=== PATIENT | male | born 1985 | race Caucasian/White ===

== ENCOUNTER 2018-07-25 01:38 | Inpatient (IN) | payer OTHER ==
[~2018-07-25] VITALS: Ht 175.3 cm; Wt 50.1 kg
[~2018-07-25 01:38] MED LIST: CYCLOBENZAPRINE10 MG PO
[2018-07-25] MEDS ORDERED: VITAMIN C500 M1 PO (02:02)
--- NOTE | 2018-07-25 05:04 | NUR ---
PT ARRIVED WITH ME FROM ED AT 0432. PAIN IS 9, CALLED MD KAY FOR AN EXTRA DOSE OF PAIN MEDICATION WHICH I RECEIVED. V/S ARE WDL.
--- NOTE | 2018-07-25 05:43 | NUR ---
V/S ARE WDL, PAIN IS MONITORED, SOME OUTPUT WITH NG-TUBE. ABD SOUNDS ARE HYPOACTIVE AT BEST. PT HAS NO FLATUS, LAST BM WAS 07/24/18. PT IS NPO AT THIS TIME. LOBES ARE CLEAR, S1 S2 HEARD, NO PERIPHERAL EDEMA NOTED, ALL PERIPHERAL PULSES ARE WDL, PT IS AAO X4. NO NEW CONCERNS NOTED AT THIS TIME. WILL CONTINUE TO MONITOR.
--- NOTE | 2018-07-25 07:14 | NUR ---
REPORT RECEIVED FROM KELSI SMITH. PT REPORTS 10/28 PAIN. PT BEGINS VOMITING DURING REPORT, 50ML GREEN EMESIS NOTED. VITALS TAKEN. MEDICATION GIVEN (SEE MAR). NG TUBE TO CONTINIOUS SUCTION AT 85 PER REPORT. PT RESTING IN BED, GIRLFRIEND AT BEDSIDE. BED RAILS UP. CALL LIGHT WITHIN REACH.
--- NOTE | 2018-07-25 08:14 | NUR ---
MORNING ASSESSMENT DUE. THIS RN TO BEDSIDE. PT CONTINUES TO REPORT NAUSEA, NO EMESIS NOTED. PT REPORTS 5/10 PAIN AND STATES "I'M SO TIRED OF THIS PAIN." PT RESTLESS IN BED. NG TUBE SHOWS 150ML BROWN/GREEN DRAINAGE. ASSESSMENT DONE. PT STATES ABDOMEN IS DISTENDED, TENDER TO TOUCH. BOWEL TONES NOTED. PT UPDATED ON PLAN OF CARE. NG TUBE PLACED ON LOW INTERMITANT SUCTION. NO ADDITONAL REQUESTS OR COMPLAINTS AT THIS TIME. CALL LIGHT WITHIN REACH. BED RAILS UP. GIRLFRIEND AT BEDSIDE.
--- NOTE | 2018-07-25 08:50 | NUR ---
PATIENT SITTTING UP IN BED. FAMILY IN ROOM. PATIENT COMPLAINS ABOUT PAIN. RN NOTIFIED. CALL LIGHT WITHIN REACH. NO OTHER NEEDS AT THIS TIME
--- NOTE | 2018-07-25 09:02 | NUR ---
PT CALL LIGHT ON. PT REPORTS WORSENING PAIN, NOW AT 12/29. MD NOTIFIED. NEW MEDICATION ORDERS PLACED. PHARMACIST NOTIFIED. PT UPDATED. MEDICATION GIVEN (SEE MAR). PT PLACED ON CONTINIOUS PULSE OX. BED RAILS UP. CALL LIGHT WITHIN REACH.
--- NOTE | 2018-07-25 09:05 | NUR ---
PATIENT SITTING UP IN BED. FAMILY IN ROOM. VITAL SIGNS AND I&O DONE. CALL LIGHT WITHIN REACH. NO OTHER NEEDS AT THIS TIME
--- NOTE | 2018-07-25 09:40 | NUR ---
THIS RN TO BEDSIDE FOR ROUNDS WITH MD. PT RATES PAIN AT 4/10 STATING, "IT'S WORSE WHEN I MOVE." PT VERBALIZES UNDERSTANDING OF PLAN OF CARE. CALL LIGHT WITHIN REACH. GIRLFRIEND AT BEDSIDE.
--- NOTE | 2018-07-25 10:30 | NUR ---
NEW ORDERS IN FOR PT. THIS RN TO BEDSIDE. MEDICATIONS GIVEN (SEE MAR). PT REPORTS PAIN NOW AT 7/10. CONTINIOUS PULSE OX READS 97% ON ROOM AIR. PAIN MEDICATION TITRATED UP TO FULL DOSE. SCD'S PLACED. INCENTIVE SPIROMETER EDUCATION DONE WITH PT. PT DEMONSTRATES UNDERSTANDING REACHING 1250ML. CONSENT FOR SURGERY SIGNED. PT ENCORUAGED TO AMBULATE. PT REFUSES AT THIS TIME. PT AGREES TO SHOWER "LATER" BEFORE SURGERY. PT RESTING WITH EYES CLOSED. BED RAILS UP. CALL LIGHT WITHIN REACH.
--- NOTE | 2018-07-25 10:54 | NUR ---
ABX ARRIVED FROM [facility]. STARTED ORDERED (SEE MAR). PT CONTINUES TO REPORT 7/10 PAIN. PT DRIFTS QUICKLY OFF TO SLEEP. PULSE OX READS 96%. BED RAILS UP. CALL LIGHT WITHIN REACH.
--- NOTE | 2018-07-25 11:10 | NUR ---
PATIENT RESTING IN BED. SETS UP BATHROOM FOR SHOWER. CALL LIGHT WITHIN REACH. NO OTHER NEEDS AT THIS TIME
--- NOTE | 2018-07-25 11:44 | CONS ---
[facility] [address] [place], [place] [address] Signed DATE OF CONSULTATION: 07/25/2018 CHIEF COMPLAINT: Diffuse generalized abdominal pain. HISTORY OF PRESENT ILLNESS: Chris is a 32-year-old gentleman, who I know from 2005. He had an appendectomy through a lower midline incision at age 5. He presented to me with a small-bowel obstruction requiring lysis of adhesions and we resected about 6 cm of the small bowel and he had an end-to-end hand-sewn anastomosis. In the meantime, he has been working at the [employer] and lives with his girlfriend, Guevara. She said over the last couple months, he has had a lot of trouble with crampy abdominal pain and has been cutting back on his p.o. intake. He has been losing weight and he is already thin to start with. Finally, the pain was so severe yesterday, she brought him to the emergency room for evaluation. In the emergency room, he is a little distended with some moderate firmness, but no peritonitis. White count was normal. Urine specific gravity was little elevated. CT scan was performed and he has fluid in the stomach throughout the distal jejunum and somewhere into the proximal ileum. He seems to have a transition point in the central abdomen. Small bowel was dilated up to 3.3 cm and fluid-filled with some air fluid levels as well. An NG tube had been placed and he had return of moderately dark bilious fluid. He has been having trouble even with Dilaudid controlling his pain. I was asked to admit him as a general surgeon on-call. PAST MEDICAL HISTORY: Small-bowel obstruction, chronic constipation, and chronic back pain. PAST SURGICAL HISTORY: 1. Open appendectomy through a lower midline incision at age 5. 2. Lysis of adhesions, small-bowel resection with an end-to-end anastomosis at age 20 in 2005, and also circumcision for phimosis around age 10-12. SOCIAL HISTORY: He does not smoke or drink. He lives with his girlfriend, Guevara, at [phone]. He works at the [employer] for [employer]. They have no children. He has four siblings. His mother is Dena Watts at [phone]. They prefer the [facility]. He has no primary care provider. FAMILY HISTORY: Not reviewed today. REVIEW OF SYSTEMS: He had 10 systems reviewed and no new findings other than what we reviewed above. Electronically Signed By: ARNOL CANNON MD 07/25/18 1144 PATIENT NAME: CHRIS WATTS CONSULTATION DATE OF : 87 REPORT #: [id number] PHYSICIAN: ARNOL CANNON MD PCP: NO PRIMARY CARE PHYSICIAN REPORT IS CONFIDENTIAL AND NOT TO BE RELEASED WITHOUT AUTHORIZATION [facility] [address] [place] [id number] Signed ALLERGIES: None. MEDICATIONS: Vitamin C. PHYSICAL EXAMINATION: VITAL SIGNS: His blood pressure 122/81, his heart rate 78, his respiratory rate 16, his temperature is 97.9. He is 97% on room air. He is 5 feet 9 inches and 47 kg. GENERAL: Chris is a 32-year-old gentleman, lying supine in his hospital bed. NG tube is in place with moderately dark but clean NG bilious fluid coming through the NG tube. He is clearly in pain even though he just received some Dilaudid. LUNGS: Clear to auscultation bilaterally. HEART: Regular rate and rhythm. ABDOMEN: Mildly distended. It is moderately firm, dull to percussion without any peritoneal signs or symptoms. LABORATORY DATA: His white blood cell count is 9.6. His neutrophils are 71. His BUN is 8, creatinine 0.8. Urine specific gravity is up at 1.035. Liver function tests are negative. Albumin is 4.1. RADIOGRAPHIC STUDIES: A chest x-ray shows the NG tube in the stomach and unremarkable lungs. The CT scan of the abdomen and pelvis shows the dilated small bowel up to 3.3 cm with air-fluid levels starting in the stomach all the way into somewhere probably the proximal ileum. There seemed to be a transition point somewhere in the central abdomen. It could be his anastomosis or adhesions. ASSESSMENT AND PLAN: Chris is a 32-year-old gentleman, who presents with a small bowel obstruction. He has been admitted, given IV fluids and NG placed. We are going to start his antibiotics. After a long discussion with Chris and his girlfriend, it looks like we are going to take him to the OR later today for a laparotomy, lysis of adhesions and possible small-bowel resection. Chris has been through this before. He is quite familiar with the whole process. He has expressed understanding and would like to proceed. Arnol Cannon MD ALB/MODL Electronically Signed By: ARNOL CANNON MD 07/25/18 1144 PATIENT NAME: CHRIS WATTS CONSULTATION DATE OF : 87 REPORT #: [id number] PHYSICIAN: ARNOL CANNON MD PCP: NO PRIMARY CARE PHYSICIAN REPORT IS CONFIDENTIAL AND NOT TO BE RELEASED WITHOUT AUTHORIZATION [facility] [address] [place] [address] Signed /[id number] Copies: ~ Electronically Signed By: ARNOL CANNON MD 07/25/18 1144 PATIENT NAME: CHRIS WATTS COREEN CONSULTATION DATE OF : 87 REPORT #: [id number] PHYSICIAN: ARNOL CANNON MD PCP: NO PRIMARY CARE PHYSICIAN REPORT IS CONFIDENTIAL AND NOT TO BE RELEASED WITHOUT AUTHORIZATION
--- NOTE | 2018-07-25 11:49 | NUR ---
PT CALL LIGHT ON. PUMP ALARMING, FLAGYL COMPLETE. CEFEPIME CONTINUES TO INFUSION WELL IV FLUIDS. PT HAVING DRY HEAVES, SEE MAR FOR MEDICATION GIVEN. PT REPORTS 6/10 PAIN, PT VERY DROWSY, ANSWERS QUESTIONS WITH CONTINUED AROUSAL. O2 SATURATION 98% ON ROOM AIR. ASSESSEMENT DONE. 550ML NEW BROWN/GREEN DRAINAGED NOTED FROM NG TUBE SINCE THIS MORNING'S ASSESSMENT. PT RESTING WITH EYES CLOSED, RR = 16 BPM. BED RAILS UP. CALL LIGHT WITHIN REACH.
--- NOTE | 2018-07-25 12:53 | NUR ---
PT CALL LIGHT ON. PT VOMITING, PT REPORTS 5/10 PAIN. SEE MAR FOR MEDICAITON GIVEN. PRE-PROCEDURE CHECK LIST COMPLETE. PT AGREES TO SHOWER AT 1400. PULSE OX READS 96% ON ROOM AIR. PT REPORTS NAUSEA IS IMPROVING. NG TUBE TO LOW INTERMITANT SUCTION. CANISTER NEAR FULL. CANISTER EMPTIED. ADDITIONAL 200ML SINCE NOON ASSESSMENT. BED RAILS UP. CALL LIGHT WITHIN REACH.
--- NOTE | 2018-07-25 13:33 | NUR ---
PATIENT RESTING IN BED. VITAL SIGNS AND I&O DONE. PATIENT'S BODY CLEANED WITH SURGICAL WIPES. PATIENT USING A CLEAN GOWN. PATIENT DID NOT VOID DURING THIS PERIOD. RN NOTIFIED. CALL LIGHT WITHIN REACH. NO OTHER NEEDS AT THIS TIME
--- NOTE | 2018-07-25 13:48 | NUR ---
THIS RN TO ROOM TO CHECK ON PT. PT RESTING WITH EYES CLOSED, RR = 16 BPM. GIRL FRIEND AT BEDSIDE. BED RAILS UP. CALL LIGHT WITHIN REACH.
--- NOTE | 2018-07-25 14:30 | NUR ---
OR TEAM HER TO TAKE PT TO SURGERY. PT TRANSFERED TO OR FLUIDS. IV CEFEPIME COMPLETE. PT TRANSFERES SELF TO OR STRETCHER. REPORT GIVEN TO KELSI CMDONALD. NO ADDITIONAL REQUESTS OR COMPLAINTS. PTS FAMILY UPDATED ON WAIT TIME. FAMILY REMAINS IN ROOM AT THIS TIME. HOME COMFORT ADVISOR TO BEDSIDE TO CHANGE SHEETS AND CLEAN ROOM.
--- NOTE | 2018-07-25 14:50 | NUR ---
PATIENT IN SURGERY. JUAN IN ROOM. LINENS CHANGED.NO OTHER NEEDS AT THIS TIME
--- NOTE | 2018-07-25 14:56 | NUR ---
PT FAMILY UPDATED ON PT STATUS AND PLAN OF CARE PER MICROBIOLOGY LAB MANAGER'S.
--- NOTE | 2018-07-25 17:13 | NUR ---
07/25/18 1713 Yessy Mas 1701- PT ARRIVES TO PACU FROM OR ON 6 L VIA MASK WITH NO AIRWAY IN PLACE. NG TUBE IN PLACE SET TO MEDIUM SUCTION. PT OPENS YES AND RESPONDS TO VERBAL STIMULUS. GENERAL ANESTHESIA WITH T.A.P. BLOCK BILATERAL. SATS 100%. OTHER VSS. \ 1711- PT RESPONDS TO VERBAL STIMULUS BUT FALLS BACK ASLEEP EASILY. VSS. SATS 100% ON RA. NG TUBE CONTINUES AT MEDIUM SUCTION
--- NOTE | 2018-07-25 17:50 | NUR ---
PT HAS ARRIVED TO CCU INTO ROOM 127 AT THIS TIME; PT TRANSFERED VIA DRAW SHEET FROM STRETCHER TO BED; PT ARRIVES DROWSY BUT ORIENTED X4, DENIES ANY PAIN, DENIES N/V OR SOB. NG TUBE HOOKED UP TO LOW INTERMITTENT SUCTION AT THIS TIME. VS INITIATED AND ARE WNL. ROOM AIR. PT'S ABDOMINAL DRSG IS C/D/I- SOME SLIGHT BRIGHT RED NOTED AT UPPER PORTION OF DRSG BUT BY NO MEANS SOAKED THROUGH. PT ARRIVES WITH VILLALBA CATHETER IN PLACE THAT WAS PLACED IN OR; CLEAR, LIGHT YELLOW URINE DRAINING INTO TUBING. WILL INITIATED ORDERED ABX SHORTLY ONCE PT SETTLED. ORIENTED PT TO HIS NEW ROOM/ENVIRONMENT AND CALL LIGHT. HE DENIES ANY NEEDS AT THIS TIME. CALL LIGHT WITHIN REACH. WILL CONTINUE TO MONITOR.
--- NOTE | 2018-07-25 18:00 | NUR ---
HEAD TO TOE ASSESSMENT COMPLETED- SEE CHARTED ASSESSMENT. PT REMAINS DROWSY FROM SURGICAL GENERAL ANESTHESIA. STILL DENIES PAIN. PT'S GIRLFRIEND AND OTHER FRIEND AT BEDSIDE. PT DENIES ANY NEEDS. SCD IN PLACE AND ON. CALL LIGHT WITHIN REACH. WILL CONTINUE TO MONITOR.
--- NOTE | 2018-07-25 18:55 | NUR ---
PT CONTINUES TO REST IN BED. CONTINUOUS FLUIDS RUNNING WELL CEFEPIME; FLAGYL HAS COMPLETED. PT'S VILLALBA CONTINUES TO DRAIN CLEAR, LIGHT YELLOW URINE. NG OUTPUT IN SUCTION CANISTER IS A THICK, BROWN COLOR. SEE CHARTED INTAKE. CALL LIGHT WITHIN REACH. SCD IN PLACE. WILL CONTINUE TO MONITOR.
--- NOTE | 2018-07-25 19:43 | NUR ---
ROUNDED ON pt. RESTING ON RIGHT SIDE, EYES CLOSED. RESPIRATIONS REGULAR. NG TO SUCTION. IVF INFUSING. VILLALBA DRAINING WELL. CALL LIGHT WITHIN REACH.
--- NOTE | 2018-07-25 20:09 | NUR ---
CALL LIGHT ON. pt REPORTED "I FEEL GAGGY". RAISED HOB. pt REPORTED FEELING NG TUBE IN BACK OF THROAT, DENIED CHANGE SINCE EARLIER. NG TUBE TO SUCTION WITH BROWN DRAINAGE. pt REPORTED FEELING BETTER AFTER SWALLOWING. ASSESSMENT DONE. RATED BACK PAIN 2/10, DESCRIBED "DISCOMFORT". BT HYPOACTIVE. DRESSING CDI. VILLALBA CARE DONE, STAT LOCK PLACED. VILLALBA DRAINING DILUTE URINE. NO REQUESTS AT THIS TIME. CALL LIGHT WITHIN REACH.
--- NOTE | 2018-07-25 21:07 | NUR ---
CALL LIGHT ON. pt REQUESTED PAIN MEDS FOR BACK PAIN 10/28. PRN MED GIVEN (SEE MAR). pt DENIED PAIN IN ABD. DRESSING CDI. VSS NORMAL. CALL LIGHT WITHIN REACH.
--- NOTE | 2018-07-25 21:37 | NUR ---
DR CANNON CALLED FOR AN UPDATED ON pt. NO NEW ORDERS AT THIS TIME.
--- NOTE | 2018-07-25 22:03 | NUR ---
pt RESTING WITH EYES CLOSED, RESPIRATIONS REGULAR IN RATE AND RHYTHM. VSS. CALL LIGHT WITHIN REACH.
--- NOTE | 2018-07-25 23:06 | NUR ---
ROUNDED ON pt. RESTING WITH EYES CLOSED, RESPIRATIONS REGULAR IN RATE AND RHYTHM. CALL LIGHT WITHIN REACH.
--- NOTE | 2018-07-25 23:50 | NUR ---
CALL LIGHT ON. pt REQUESTED PRN PAIN MED FOR 10/28 PAIN. OFFERED TYLENOL, pt REFUSED AT THIS TIME. DILAUDID GIVEN (SEE MAR). CALL LIGHT WITHIN REACH.
--- NOTE | 2018-07-26 00:10 | NUR ---
ASSESSMENT DONE. VILLALBA BAG EMPTIED. VSS. pt RESTING ON RIGHT SIDE WITH EYES CLOSED. RESPIRATIONS REGULAR. IV ABX INFUSING (SEE MAR). DRESSING CDI. CALL LIGHT WITHIN REACH.
--- NOTE | 2018-07-26 01:00 | NUR ---
ROUNDED ON pt. RESTING WITH EYES CLOSED, RESPIRATIONS REGULAR. CALL LIGHT WITHIN REACH.
--- NOTE | 2018-07-26 01:30 | NUR ---
CALL LIGHT ON. pt REPORTING "SPASMING IN MY STOMACH". REPORTED 8/10 PAIN. KELSI WATSON WILL ADMINISTER PAIN MEDICATION.
--- NOTE | 2018-07-26 02:05 | NUR ---
ROUNDED ON pt. OPENED EYES WHEN THIS RN ENTERED ROOM. pt REPORTED "NO CHANGE" IN PAIN. NEW ICE PACK IN PLACED. PRN PAIN MEDS RECENTLY GIVEN (SEE MAR). pt REPORT BURPING. NG TUBE DRAINING TO SUCTION. WILL CONTINUE TO MONITOR. CALL LIGHT WITHIN REACH.
--- NOTE | 2018-07-26 02:46 | NUR ---
pt REPORTED THAT PAIN "IS NOT MUCH BETTER" REQUESTED "SOMETHING TO KNOCK ME OUT SO I CAN SLEEP" OFFERED TYLENOL SUPPOSITORY, pt REFUSED AT FIRST AND THEN ACCEPTED. SUPPOSITORY ADMINISTERED (SEE MAR). pt RESTING ON RIGHT SIDE. CALL LIGHT WITHIN REACH.
--- NOTE | 2018-07-26 03:47 | NUR ---
ADMINISTER PRN PAIN MEDICATION (SEE MAR). pt RATED PAIN 5/10. ASSESSMENT DONE. NO CHANGES FROM PRIOR ASSESSMENT. CALL LIGHT WITHIN REACH.
--- NOTE | 2018-07-26 04:37 | NUR ---
ROUNDED ON pt. RESTING WITH EYES CLOSED, RESPIRATIONS REGULAR. CALL LIGHT WITHIN REACH.
--- NOTE | 2018-07-26 05:50 | NUR ---
pt RESTED ON AND OFF DURING SHIFT. PRN PAIN MEDICATION GIVEN Q2H FOR BACK PAIN AND ABD LATER IN SHIFT. TYLENOL X1. MIDLINE INCISION WITH GAUZE AND TAPE, CDI. IV IN RIGHT AC SL, LEFT FOREARM CONTINOUS. IV ABX. VILLALBA, VOIDING QS. NPO. NG TUBE TO LIS, BROWN DRAINAGE. BOWEL TONES HYPOACTIVE. HEART MONITOR, SR, HR 60'S TO 100'S. USES CALL LIGHT APPROPRIATELY.
--- NOTE | 2018-07-26 06:45 | NUR ---
REASSESSED PAIN. pt STATED "THAT LAST DOSE DID NOT DO ANYTHING, I HAD A LAB DRAW RIGHT AFTER" RATED PAIN 11/28. ROOM TIDIED. CALL LIGHT WITHIN REACH.
--- NOTE | 2018-07-26 06:55 | OR ---
[facility] [address] [place], [place] [address] Signed DATE OF OPERATION: 07/25/2018 SURGEON: Arnol Cason MD PREOPERATIVE DIAGNOSIS: Small bowel obstruction. POSTOPERATIVE DIAGNOSIS: Small bowel obstruction. PROCEDURES PERFORMED: 1. Lysis of adhesions. 2. Serosal repairs x2 clusters in the distal ileum and mid transverse colon. INPUT AND OUTPUT: In was 1800 mL of crystalloid, out was 25 mL urine over 1 hour and 40 minutes and 1350 mL of liquid particulate stool matter with some bilious fluid and minimal blood loss. FINDINGS: Chris had a portion of his distal ileum and his mid transverse colon adherent to his previous midline incision. The distal ileum then had some adhesions and a kink causing his bowel obstruction. Fortunately, these were filamentous adhesions and easily taken down. His entire colon is full of very hard pellet-like stool. All bowel was viable. INDICATIONS: Chris is a 32-year-old gentleman, who at age [age] had a lower midline incision for an open appendectomy. I have met him at age 20 back in 2005 when he required a lysis of adhesions and about 6 cm of his distal ileum had to be resected and sewn back together into in. 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 He has been living with his girlfriend Guevara. Chris and Guevara are both quite thin, not cachectic. The last 2 months he has been having a lot of trouble with periumbilical and supraumbilical abdominal pain. He recognized that as a bowel obstruction. He has cut his food back and he has been struggling significantly over the last 2 months. Last night he was in significant pain and his girlfriend finally brought him to the emergency room for evaluation. In the emergency room, he had [id number] distention of his abdomen and somewhat firm, but no peritoneal signs or symptoms. His white count was normal at 9.6. Urine specific gravity was a bit elevated. A CT scan was performed and he clearly has a transition point out in the central abdomen of the small intestine and everything proximal to that is dilated with air-fluid levels to about 3.[address] back into the stomach itself. An NG tube Electronically Signed By: ARNOL CASON MD 07/26/18 0655 PATIENT NAME: CHRIS DE LA VEGA OPERATIVE REPORT DATE OF : 87 REPORT #: [id number] PHYSICIAN: ARNOL CASON MD PCP: NO PRIMARY CARE PHYSICIAN REPORT IS CONFIDENTIAL AND NOT TO BE RELEASED WITHOUT AUTHORIZATION [facility] [address] [place], [place] [address] Signed was placed in his stomach in the ER and confirmed with the chest x-ray. He was admitted and given IV fluids. He did receive some additional antibiotics. I have been asked to admit him as a general surgeon on-call. I met with Chris and his girlfriend early this morning. He was critically ill and not feeling well. After talking with Chris and his girlfriend, we all decided it was prudent to go ahead and take him to the operating room today. Normally we would wait a few days and see if he would not improve. I had two previous surgeries which gave us time to give him some additional fluids. Chris is quite familiar with laparotomy and lysis of adhesions having undergone that previously. He is also familiar that we might have to resect the small intestine based on intraabdominal findings. Consequently, he does understand the expected intraop and postop course. He knows there is risk including, but not limited to bleeding, infection, scarring, change in contour of the skin, damage to bowel, incisional hernias and recurrent adhesions and recurrent small bowel obstruction requiring intervention. He and Guevara had expressed understanding and wished to proceed. PROCEDURE NOTE: Chris was taken into our operating room and placed in the supine position. He was given preoperative antibiotics and subcutaneous heparin. SCDs were utilized. Zamora catheter was inserted with out difficulty with return of clear yellow urine. He was then prepped and draped in the usual sterile fashion. We utilized his previous midline incision and we had to extend that slightly cephalad toward the xiphoid process in order to enter the abdomen. Otherwise, the transverse colon in length of small intestine was quite adherent to his midline incision at the umbilicus and just above the umbilicus. It took just a few minutes to lyse the adhesions and released that transverse colon and small bowel. It was quite evident that the adhesions of the small bowel to the anterior abdominal wall that caused the kink in his small intestine. I took those adhesions down sharply and that relieved the bowel quite nicely. The distal portion of the ileum was decompressed. We found our previous anastomosis and it was well healed and widely patent. He also had a few adhesions along the anterior liver edge to the chest wall and we took those down quite easily with our cautery. The serosal injury in the mid transverse colon was closed longitudinally with a running #3-0 Vicryl suture. We found that his entire colon from the cecum all the way around to the rectum was full of very hard pellet-like stool. He did have some serosal injury right around the adhesions on the distal small bowel to the anterior abdominal wall. Those were closed transversely and longitudinally with interrupted 3-0 Vicryl sutures. The lumen remained widely patent. We then had to run the small bowel back into the stomach between the index finger and into the 2nd finger. Brown liquid particulate stool matter was evacuated along with some bilious fluid. In fact, 1350 mL were evacuated. After this, the abdomen was irrigated and suctioned out until clear. Chris is quite thin at 5 foot 9 inches tall at 47 kg. Consequently, he has little of any fat in his mesentery and we could see the blood vessels quite well along with multiple tiny reactive lymph nodes. Also, he has little or no omentum. The gastrocolic ligament was also quite thin. We Electronically Signed By: ARNOL CASON MD 07/26/18 0655 PATIENT NAME: CHRIS DE LA VEGA OPERATIVE REPORT DATE OF : 87 REPORT #: [id number] PHYSICIAN: ARNOL CASON MD PCP: NO PRIMARY CARE PHYSICIAN REPORT IS CONFIDENTIAL AND NOT TO BE RELEASED WITHOUT AUTHORIZATION [facility] [address] [place], [place] [address] Signed had placed the small bowel back in the abdomen and we closed his midline fascia with interrupted [id number] #1 PDS sutures. We then brought the skin together with shen. At the end of the procedure a TAP abdominal wall block was provided by our anesthesia provider with ultrasound guidance. We left our Zamora catheter in place. He was awakened from his anesthesia, extubated in the OR, and taken to recovery room in stable condition. Arnol Cason MD ALB/NICKL /[id number] cc: Arnol Cason MD Copies: ARNOL CASON MD ~ Electronically Signed By: ARNOL CASON MD 07/26/18 0655 PATIENT NAME: CHRIS DE LA VEGA OPERATIVE REPORT DATE OF : 87 REPORT #: [id number] PHYSICIAN: ARNOL CASON MD PCP: NO PRIMARY CARE PHYSICIAN REPORT IS CONFIDENTIAL AND NOT TO BE RELEASED WITHOUT AUTHORIZATION
--- NOTE | 2018-07-26 07:01 | NUR ---
SPOKE WITH MD REGARDING pt's PAIN. MD WILL ENTER ORDERS.
--- NOTE | 2018-07-26 07:55 | NUR ---
THIS RN ENTERED ROOM TO FIND PT VISIBLY UNCOMFORTABLE, GUARDING HIS STOMACH. PT RATES HIS ABDOMINAL PAIN A 8 OUT OF 10 WITH A PAIN GOAL OF 3. HE IS A/O X4 BUT ANXIOUS, RESTLESS YET SOMEWHAT WITHDRAWN. ROOM AIR. LUNGS ARE CLEAR BUT DIMINISHED- PT TAKING SHALLOW BREATHES DUE TO HIS PAIN- EDUCATION GIVEN ON IMPORTANCE OF HIM COUGHING AND DEEP BREATHING- I UNDERSTAND WITH HIS PAIN THIS IS HARD- WILL ENCOURAGE MORE ONCE PAIN IS BETTER. BOWEL TONES ARE RARE AND HYPOACTIVE- DR. CANNON HAS ARRIVED AT THE BEDSIDE AT THIS TIME AND HAS REMOVED THE DRSG ON HIS ABDOMEN. INCISION IS NOW OPEN TO AIR- CHELITA IN TACT- WOUND IS C/D/I WITHOUT ANY VISIBLE SIGNS OF INFECTION OR ISSUES. SR ON CONTINUOUS TELE. PULSE OX IN PLACE FOR NARCOTIC MEDS GIVEN. VILLALBA IN PLACE DRAINING, DILUTE, CLEAR YELLOW URINE- ADEQUATE OUTPUT. BOTH PIV FLUSH WELL WITH GOOD BLOOD RETURN. CEFEPIME RUNNING WITH CONTINUOUS FLUIDS. PT'S SKIN PALE EXCEPT FOR SOME REDNESS ON COCCYX AND GROIN. PT HASN'T BEEN OUT OF BED YET HE IS IN TOO MUCH PAIN AND IT HURTS HIM TO MOVE. DR. CANNON HAS SPOKEN TO PT ABOUT HIS PLAN TO ORDER TORADOL AND PULP TESTER TO ASSIST WITH PT'S DISCOMFORT. PT DENIES ANY N/V OR SOB. HIS NGT IS TO LOW INTERMIT SUCTION WITH SMALL AMOUNT OF DARK GREEN DRAINAGE IN THE TUBING. HE DENIES ANY FURTHER NEEDS OTHER THAN ASSISTANCE WITH PAIN CONTROL. PRN DILAUDID GIVEN. CALL LIGHT WITHIN REACH. WILL CONTINUE TO MONITOR.
--- NOTE | 2018-07-26 09:00 | NUR ---
PT STILL RESTING ON HIS SIDE GUARDING HIS STOMACH- FRESH ICE PACK PROVIDED WELL CUP OF ICE CHIPS AND MOUTH SWABS. HE RATES HIS PAIN A 4 OUT OF 10- MUCH BETTER COMPARED TO THIS AM BUT NOT QUITE TO HIS GOAL. TORADOL GIVEN. UPDATED PT ON HOW WE ARE AWAITING WAIT STAFF MIXTURE FROM PHARMACY. DENIES ANY OTHER NEEDS. CALL LIGHT WITHIN REACH. WILL CONTINUE TO MONITOR.
--- NOTE | 2018-07-26 09:53 | NUR ---
PT RESTING IN BED STILL- VILLALBA EMPTIED. PT UPDATED ON PLAN OF TRANSFER TO M/S ROOM 115 WELL STILL AWAITING SOME MEDS FROM PHARMACY. PT APPEARS MUCH MORE RESTFUL COMPARED TO THIS MORNING AT 0800 BUT HE IS STATING HIS PAIN IS STILL NOT WHERE HE'D LIKE IT. CALL LIGHT WITHIN REACH. WILL CONTINUE TO MONITOR.
--- NOTE | 2018-07-26 10:39 | NUR ---
DILAUDID RABBLE FURNACE TENDER INITIATED AT THIS TIME WITH 2 RN VERIFICATION.
--- NOTE | 2018-07-26 10:43 | NUR ---
REPORT GIVEN TO RECEIVING KELSI HERNÁNDEZ; PT TAKEN IN BED WITH ALL BELONGINGS TO ROOM 115 ON M/S UNIT AT THIS TIME- PT TRANSPORTS WITH HIS BULB GRADER RUNNING WELL HIS CONTINUOUD FLUIDS, CALCIUM GLUCONATE AND MAG SULFATE. TRANSFER COMPLETE.
--- NOTE | 2018-07-26 10:47 | NUR ---
Report received from KELSI Rojas. Pt arrives to room 115 by hospital bed. Pt's eyes closed and respirations even and unlabored. Pt is alert to voice. Pt oriented to room and call light. Pt was educated on use of REHAB NURSE pump and CPOX applied as well as SCD's. REHAB NURSE remote in reach. Pt rates pain at 4/10 and states it is tolerable. Moistened toothettes provided for comfort per pt request. Assessment completed and vs's stable on room air. NG tube hooked up to low intermittant suction and producing small amounts of dark green gastric fluids. pt states he is comfortable and denies further needs or concerns. White board updated.
--- NOTE | 2018-07-26 11:39 | NUR ---
PT OFF FLOOR TO IMAGING FOR CXR.
--- NOTE | 2018-07-26 13:16 | NUR ---
Pt resting supine in bed, eyes closed and respirations even and unlabored. IV abx infusing. Room air sat is 98%. Call light and PIN TICKET MACHINE OPERATOR pump in reach. Pt appears to be sleeping comfortably.
--- NOTE | 2018-07-26 16:47 | NUR ---
PT RESTING SUPINE IN BED, EYES CLOSED AND RESPIRATIONS 12 SATTING 97% ON ROOM AIR. PT STATES PAIN IS CURRENTLY 04/30. SCHEDULED TORADOL ADMINSTERED -SEE EMAR. I ENCOURAGED PT TO AMBULATE BUT PT DECLINES AT THIS TIME. PT AGREES TO USE CALL LIGHT WHEN HE FEELS READY TO TRANSFER TO CHAIR OR TO GO FOR A WALK. CALL LIGHT AND MOISTENED TOOTHETTES IN REACH. PT CONTINUES TO DENY PASSING GAS BUT STATES HE HAS BEEN BELCHING INTERMITTANTLY.
--- NOTE | 2018-07-26 18:00 | NUR ---
Pt assisted up to chair with 1 person assist. Warm blanket provided, call light in reach. chapstick also provided. Pt states pain is tolerable and denies nausea. Pt states "I actually passed some gas".
--- NOTE | 2018-07-26 18:51 | NUR ---
Patient's medications reconciled. Patient takes Vit C and Kratom 3g BID to TID for pain. Kratom leaves contain compounds that can have psychotropic effects similar to both opioids and stimulants.
--- NOTE | 2018-07-26 19:47 | NUR ---
REPORT RECEIVED, PT RESTING IN BEDSIDE CHAIR, PT AOX4, QUIET, NG TUBE DRAINING TO LIWS, ON CPOX, O2: 97%, HR: 81, ON RA, SLEEVE BASTER PUMP INFUSING PER EMAR, VILLALBA CATH DRAINING WNL, PT DENIES ANY NEEDS AT THIS TIME, FAMILY AT BEDSIDE, UPDATE GIVEN TO FAMILY BY EDGAR DOLAN, QUESTIONS ANSWERED, CALL LIGHT WITHIN REACH, SLEEVE BASTER BUTTON WITH PT, FALL PRECAUTIONS IN PLACE.
--- NOTE | 2018-07-26 21:08 | NUR ---
VITALS DONE NAD CHARTED. PT NEEDS NOTHING AT THIS TIME. BEDSIDE TABLE AND CALL LIGHT IN REACH.
--- NOTE | 2018-07-26 21:29 | NUR ---
ROUNDED CHARGE. PATIENT DENIES ANY COMMENTS, QUESTIONS OR CONCERNS. NO NEEDS NOTED. CALL LIGHT IN REACH.
--- NOTE | 2018-07-26 21:45 | NUR ---
EVENING MEDS ADMINISTERED, PT MOVED FROM BEDSIDE CHAIR TO BED, TOLERATED WELL, MILK CONDENSER INFUSING PER EMAR WNL, IV FLUIDS INFUSING PER EMAR WNL, SCD'S ON, VILLALBA CATH DRAINING WNL, NO REQUESTS AT THIS TIME, CALL LIGHT WITHIN REACH. ASSESSMENT COMPLETE, PT'S INCISION APPEARS C/D/I, CHELITA INTACT, NO SIGNS OF DRAINAGE, PT AOX4, EASILY AROUSABLE WHEN PT IS RESTING.
--- NOTE | 2018-07-27 00:34 | NUR ---
NEW LINEWORKER SYRINGE PLACED WITH ALGEBRAISTKELSI CONCEPCION, 2 RN VERIFICATION, PT ALSO GIVEN SCHEDULED TORADOL, NO FURTHER REQUESTS AT THIS TIME, CALL LIGHT WITHIN REACH. FALL PRECAUTIONS IN PLACE. VILLALBA CATH DRAINING WNL, SCD'S ON,
--- NOTE | 2018-07-27 03:02 | NUR ---
PT RESTING IN BED, EYES CLOSED, BREATHS EVEN, UNLABORED, NO REQUESTS AT THIS TIME, CALL LIGHT WITHIN REACH. FALL PRECAUTIONS IN PLACE.
--- NOTE | 2018-07-27 04:26 | NUR ---
PT RESTING IN BED, STATES THAT HIS PAIN "IS GOOD" AT THIS TIME, NO REQUESTS AT THIS TIME, CALL LIGHT WITHIN REACH, NG TUBE DRAINING TO LIWS WNL, VILLALBA CATH DRAINING WNL, IV FLUIDS INFUSING PER EMAR WNL, RADAR SYSTEMS ENGINEER INFUSING PER EMAR WNL, PT AROUSABLE TO VOICE, RR EVEN, CPOX ON, O2 SAT > 95%, CALL LIGHT WITHIN REACH.
--- NOTE | 2018-07-27 05:45 | NUR ---
PT AOX4 THIS SHIFT, APPROPRIATE, PAIN HAS BEEN WELL CONTROLLED WITH ALLIANCE MANAGER THIS SHIFT, PT HAS BEEN ABLE TO SLEEP ON AND OFF, NG TUBE TO LIWS, IV FLUIDS/ABX INFUSED PER EMAR WNL, VILLALBA CATH DRAINING WNL, UO QS, ON CPOX, ON RA, VSS, O2 SAT > 95%, ABD INCISION IS OPEN TO AIR, NO SIGNS OF DRAINAGE, ALLIANCE MANAGER PUMP INFUSING PER EMAR WNL, SCD'S ON, PT NPO, USES CALL LIGHT APPROPRIATELY.
--- NOTE | 2018-07-27 08:03 | NUR ---
PT RESTING QUIETLY IN BED RR 16 BPM. NO DISTRESS NOTED
--- NOTE | 2018-07-27 08:12 | NUR ---
DISCUSSED WITH PT PLAN TO SHOWER AND WALK TODAY. VILLALBA CATHETER REMOVED
--- NOTE | 2018-07-27 08:30 | NUR ---
EDUCATION ON EXTERNAL RELATIONS DIRECTOR GIVEN TO PT VERBAL AND TEACH BACK, EXTERNAL RELATIONS DIRECTOR TO BE USED NEEDED. PT SLEEPING WHEN RN INTO ROOM PT ALERT AND PUSHED EXTERNAL RELATIONS DIRECTOR, RESTED BACK IN BED DROWSY APPEARED TO BE SLEEPING, ALERT TO VOICE PT LEANED OVER PUSHED EXTERNAL RELATIONS DIRECTOR BUTTON. PT VERY DROWSY, DISCUSSED WITH PAT PLAN OF CARE FOR THE DAY TO SHOWER AND AMBULATE. PT VERBALIZED UNDERSTANDING.
--- NOTE | 2018-07-27 09:18 | NUR ---
REATTATCHED PT TO IVF, AB AND CANDY POLISHER. REMOVED BASAL RATE AND LEFT PATIENT CONTROLLED DOSE INTACT AT 0.3, 10 MIN LOCKOUT. PER RN ELIUD REQUEST. PT STATES HE FEELS BETTER AFTER SHOWER.
--- NOTE | 2018-07-27 09:49 | NUR ---
CONTINUOUS INFUSION OF 0.3MG/HR STOPPED ON CLINICAL SCIENCE LIAISON DUE TO PT DROWSY. PT HAVING DIFFICULTY PARTICIPATING WITH CARE PLAN ACTIVITY. WILL CALL .
--- NOTE | 2018-07-27 10:00 | NUR ---
CALLED TO DISCUSS DIRECT SUPPORT STAFF MEMBER USE BY PT AND PT DROWSY PRESENTATION. GAVE ORDER TO STOP CONTINUOUS RATE OF 0.3MG/HR
--- NOTE | 2018-07-27 11:05 | NUR ---
PT RESTING IN BED EYES CLOSED NO DISTRESS NOTED. PT RR 14 BPM NO DISTRESS NOTED, OXYGEN SATURATION 96%. PT APPEARS TO BE SLEEPING AT THIS TIME.
--- NOTE | 2018-07-27 13:18 | NUR ---
PT EXPECTS TO RETURN HOME UPON DC, HE STATES HE WILL BE RETURNING HOME WHEN HE FINALLY GETS OUT OF HERE.
--- NOTE | 2018-07-27 13:19 | NUR ---
PT UP AMBUALTING IN HALLS AT THIS TIME WITH YOHAN RN, PT IS TOLERATING ACTIVITY WELL. PT HAS BEEN ALERT TO GUESTS IN ROOM AND STAFF ENTERING ROOM, IMPROVEMENT FROM STAFF NEEDING TO SPEAK HIS NAME TO WAKE HIM.
--- NOTE | 2018-07-27 14:13 | NUR ---
PT REPORTS PAIN 5/10 NEW SYRINGE FOR BUS COMPANY MANAGER PLACED. PT ALERT VISITNG WITH GUEST AT BEDSIDE.
--- NOTE | 2018-07-27 17:43 | NUR ---
PT HAS BEEN UP TO SHOWER THIS AM AND HAS AMBULATED IN HALLS EVERY 2-3 HOURS AFTER THAT. HE IS MORE ALERT SINCE THE DISCONTINUED IS BASAL RATE, INCISION INTACT WELL PROXIMATED CHELITA INTACT. PT HAS BEEN COOPERATIVE WITH CARE PLAN TODAY. VILLALBA OUT THIS AM VOIDING QUANTITIY SUFFICIENT, FLATUS POSITIVE, ACTIVE BOWEL TONES. NGT HAS DRAINED 200ML OVER THIS SHIFT GREEN/BROWN BILE
--- NOTE | 2018-07-27 18:26 | NUR ---
CHIQUITA WENT FOR A WALK AROUND MED/SURG. HE DID 2 LONG LAPS.
--- NOTE | 2018-07-27 19:26 | NUR ---
REPORT RECEIVED, PT RESTING IN BED VISITING WITH FAMILY, ON CPOX, O2 SAT 96%, HR 70'S, PT STATES PAIN IS CURRENTLY AT A 2 AND STATES HE IS COMFORTABLE AT THIS TIME, NG TUBE DRAINING TO LIWS, IV FLUIDS INFUSING PER EMAR WNL, NO REQUESTS AT THIS TIME, CALL LIGHT WITHIN REACH.
--- NOTE | 2018-07-27 21:00 | NUR ---
EVENING MEDS ADMINISTERED, ASSESSMENT COMPLETE, PT'S NG TUBE DRAINING TO LIWS WNL, IV FLUIDS INFUSING PER EMAR WNL, ULTRASONOGRAPHER AT PT'S BEDSIDE, PT STATES PAIN IS 2/10, DENIES NEED FOR FURTHER PAIN MANAGEMENT, PT'S ABDOMEN INCISION C/D/I, NO DRAINAGE, BT ACTIVE, PT DENIES BM THIS DAY ALTHOUGH FLATUS HAS CONTINUED, PT DENIES ANY NEEDS AT THIS TIME, AOX4, CALL LIGHT WITHIN REACH. FALL PRECAUTIONS IN PLACE. ON RA, VSS.
--- NOTE | 2018-07-27 23:00 | NUR ---
PT RESTING IN BED, EYES CLOSED, BREATHS EVEN, NO REQUESTS AT THIS TIME, IV FLUIDS INFUSING PER EMAR WNL, CALL LIGHT WITHIN REACH.
--- NOTE | 2018-07-28 00:32 | NUR ---
PT RESTING IN BED, EYES CLOSED, BREATHS EVEN, UNLABORED, NO REQUESTS AT THIS TIME, CALL LIGHT WITHIN REACH, FALL PRECAUTIONS IN PLACE. IV FLUIDS INFUSING PER EMAR WNL.
--- NOTE | 2018-07-28 02:00 | NUR ---
PT RESTING IN BED, NO REQUESTS AT THIS TIME, CALL LIGHT WITHIN REACH.
--- NOTE | 2018-07-28 03:51 | NUR ---
PT RESTING IN BED, EYES CLOSED, BREATHS EVEN, ON CPOX, NG TUBE TO LIWS, NO C/O SOB/CP, ON RA, SCD'S ON, SHOPPING INSPECTOR AT BEDSIDE, IV FLUIDS INFUSING PER EMAR WNL, NO REQUESTS AT THIS TIME, CALL LIGHT WITHIN REACH. FALL PRECAUTIONS IN PLACE.
--- NOTE | 2018-07-28 04:04 | NUR ---
IV ABX COMPLETE, IV IN PT'S LFA SL, FLUSHES WELL, PT DENIES ANY NEEDS AT THIS TIME, VOIDED 275 MLS OF DARK YELLOW URINE, DENIES ANY NEEDS AT THIS TIME, PT DENIES SIGNIFICANT PAIN STATING THAT HE JUST USED HIS WOMENS HEALTH NURSE PRACTITIONER WHILE AWAKE, O2 SAT > 95%, NG TO LIWS, CALL LIGHT WITHIN REACH.
--- NOTE | 2018-07-28 04:37 | NUR ---
PT AOX4 THIS SHIFT, LESS DROWSY THAN PREVIOUS, PAIN CONTROL WAS WELL MANAGED WITH PULVERIZER, PT ON RA, VSS, CPOX ON, O2 SAT > 95% THIS SHIFT, NG TUBE TO LIWS, PULVERIZER AT BEDSIDE, SCD'S ON, IV FLUIDS/ABX INFUSED PER EMAR WNL, PT ABLE TO REST MORE THIS SHIFT, BT ACTIVE, FLATUS NOTED, INCISION C/D/I. NO C/O NAUSEA. USES CALL LIGHT APPROPRIATELY.
--- NOTE | 2018-07-28 06:10 | NUR ---
PT RESTING IN BED, VSS, NO REQUESTS AT THIS TIME, NG TO LIWS, 2OO MLS OF BILIOUS GREEN FLUID REMOVED THIS SHIFT, IV FLUIDS/ABX INFUSING PER EMAR WNL, HAIR MACHINE OPERATOR AT BEDSIDE, BUTTON WITHIN REACH. PT DENIES SIGNIFICANT PAIN, SCD'S ON, CALL LIGHT WITHIN REACH.
--- NOTE | 2018-07-28 08:51 | NUR ---
PT IN BED, PAIN TOLERABLE, BUTTON IN REACH. LUNGS CLEAR. INCISION CDI. MEDS ADMINISTERED WITH STUDENT KELSI KAHN. AB INFUSING IN LFA.
--- NOTE | 2018-07-28 09:57 | NUR ---
PATIENT RESTING IN BED. VITAL SIGNS AND I&O DONE. PATIENT REFUSED TO TAKE A SHOWER OR BEDBATH TODAY. CALL LIGHT WITHIN REACH. NO OTHER NEEDS AT THIS TIME
--- NOTE | 2018-07-28 11:23 | NUR ---
PT WALKED IN JOVEL WITH RN STUDENT FEMI. PT TOLERATED WELL AND WAS ABLE TO DO THREE LAPS. STATES HE WILL WALK APPROX Q2 ALL DAY HE IS ANXIOUS TO GET BETTER.
--- NOTE | 2018-07-28 12:23 | NUR ---
PATIENT WALKS IN THE JOVEL TWO LAPS. ONE PERSON ASSISTING. PATIENT BACKS TO BED. CALL LIGHT WITHIN REACH. NO OTHER NEEDS AT THIS TIME
--- NOTE | 2018-07-28 12:30 | NUR ---
RE-POSITIONED NGT AT THIS TIME, AND RE-TAPED
--- NOTE | 2018-07-28 12:47 | NUR ---
PT IN BED AWAKE TALKING TO MOTHER IN ROOM. HUNG BOTH AB. IV WNL. NG AT LIWS. SUCTION MAKING NEW SOUND BUT APPEARS TO BE WORKING WNL.
--- NOTE | 2018-07-28 12:47 | NUR ---
talked with about pt confusion and agitation. new orders placed
--- NOTE | 2018-07-28 13:39 | NUR ---
KELSI KLINE IN GIVING MEDS, PT SITTING IN DARKENED RM WITH TV OFF. PT ON NG TUBE, PLEASANT, MENTIONED THAT HIS FAMILY MAIL LIST LIBRARIAN HAD JUST BEEN BY FOR A VISIT BUT HE COULDN'T REMEMBER HIS NAME. GAVE ENCOURAGEMENT, NOTICED FLUID FLOWING FROM NG TUBE.PT SEEMED TO BE COPING APPROPRIATELY WITH TREATMENT, SAID HE HAS HAD THIS BEFORE. PT HAS JUST RETURNED FROM P.T. SESSION, READY TO REST. EXTENDED A BLESSING, WILL FOLLOW NEEDED
--- NOTE | 2018-07-28 14:00 | NUR ---
PATIENT RESTING IN BED. VITAL SIGNS AND I&O DONE. CALL LIGHT WITHIN REACH. NO OTHER NEEDS AT THIS TIME
--- NOTE | 2018-07-28 14:28 | NUR ---
PT WALKED IN JOVEL, 3 LAPS WITH THIS RN. TOLERATED WELL AND AT A BRISK PACE. REHOOKED TO NG SUCTION AND SCDS. DENIES CONCERNS ATT.
--- NOTE | 2018-07-28 18:23 | NUR ---
PATIENT RESTING IN BED. VITAL SIGNS AND I&O DONE. HANDS CLEANED. CALL LIGHT WITHIN REACH. NO OTHER NEEDS AT THIS TIME
--- NOTE | 2018-07-28 18:40 | NUR ---
PATIENT RESTING IN BED. RN IN ROOM. VITAL SIGNS AND I&O DONE. HANDS CLEANED. CALL LIGHT WITHIN REACH. NO OTHE NEEDS AT THIS TIME
--- NOTE | 2018-07-28 18:51 | NUR ---
PT AMBULATED IN JOVEL X3 SO FAR TODAY. DOES ATLEAST THREE LAPS EACH TIME. USING SUPERVISOR PASTE MIXING APPROP. BOWEL TONES HYPOACTIVE. PASSING GAS. NO STOOL.
--- NOTE | 2018-07-28 19:08 | NUR ---
RECIEVED BEDSIDE REPORT FROM LISA DOLAN. PATIENT LAYING AWAKE WITH A VISITOR AT BEDSIDE. NG TUBE FUNCTIONING WNL, SUCTION AT LWIS PER ORDER. PARTICLEBOARD FACTORY WORKER BUTTON WITHIN REACH OF PATIENT. SCDS IN PLACE. WHITE BOARD UPDATED. NO MORE NEEDS AT THIS TIME.
--- NOTE | 2018-07-28 20:50 | NUR ---
ASSESSMENT COMPLETE, REFER TO ASSESSMENT. PATIENT REPORTS "4/10" PAIN IN ABD AND REPORTS ABD SPASMS, SANITARY PLUMBER BUTTON WITHIN REACH OF PATIENT, SANITARY PLUMBER SYRINGE REPLACED PER JUN ORDER WITH DOUBLE VERIFICATION BY CHARGE NURSE NURY. INCISION ON ABD IS CDI, NO NEW DRAINAGE NOTED. ACTIVE BOWEL TONES PRESENT. IV FLUIDS INFUSING PER JUN ORDER. PATIENT DENIES NAUSEA. PATIENT DENIES SOB OR DIFFICULTY BREATHING OR CHEST PAIN, RR: 16, PATIENT AWAKE AND ALERT. CPOX,WNL. NG TUBE FUNCTIONING WNL, LWIS PER ORDER, BROWN/GREEN DRAINAGE IN NG TUBE. EDUCATED PATIENT ON IMPORTANCE OF INCENTIVE SPIROMETER, PATIENT EXPRESSED UNDERSTANDING. CALL LIGHT WITHIN REACH. NO MORE NEEDS AT THIS TIME.
--- NOTE | 2018-07-28 22:34 | NUR ---
V/S AND I&O DONE AND CHARTED. DENIES ANY NEEDS AT THIS TIME.
--- NOTE | 2018-07-28 22:35 | NUR ---
ROUNDED ON PATIENT RESTING IN BED WITH EYES CLOSED, RESPIRATORY RATE IS EVEN AND UNLABORED, RR: 18. CPOX, WNL. PATIENT AWAKE AND ALERT. PATIENT REPORTS PAIN IN ABD A "1/10". CALL LIGHT WITHIN REACH. NO MORE NEEDS AT THIS TIME.
--- NOTE | 2018-07-29 00:30 | NUR ---
ROUNDED ON PATIENT LAYING IN BED WITH EYES CLOSED, PATIENT EASILY AWOKE TO THIS RN WALKING IN ROOM. MEDICATIONS ADMINISTERED PER JUN ORDER. PATIENT REPORTS PAIN IN ABD IS "5/10", PATIENT DENIES WANTING PRN PAIN MEDICATION AT THIS TIME. PILLOW PROVIDED TO PATIENT PER PATIENT REQUEST. CALL LIGHT WITHIN REACH. NO MORE NEEDS AT THIS TIME.
--- NOTE | 2018-07-29 01:30 | NUR ---
ROUNDED ON PATIENT RESTING IN BED WITH EYES CLOSED, RESPIRATORY RATE IS 16. CPOX, WNL. NO SIGNS OF TENSING OR GRIMACING. NO SIGNS OF DISTRESS. CALL LIGHT WITHIN REACH.
--- NOTE | 2018-07-29 03:50 | NUR ---
ROUNDED ON PATIENT RESTING IN BED WITH EYES CLOSED, RESPIRATORY RATE IS EVEN AND UNLABORED. RR: 16. CPOX, WNL. NO SIGNS OF TENSING OR GRIMACING. CALL LIGHT WITHIN REACH. NO MORE NEEDS AT THIS TIME.
--- NOTE | 2018-07-29 04:15 | NUR ---
ASSESSMENT COMPLETE, REFER TO ASSESSMENT. PATIENT REPORTS "4/10" PAIN IN ABD, DENIES WANTING PRN PAIN MEDICATION AT THIS TIME, ASSOCIATE MERCHANDISE PLANNER BUTTON IN PATIENT'S HAND. PATIENT REPORTS EXPERIENCING "A LITTLE BIT" OF NAUSEA, DENIES WANTING PRN NAUSEA MEDICATION. PATIENT DENIES WANTING TO BE REPOSITIONED IN BED, EDUCATION PROVIDED TO PATIENT, PATIENT STILL DECLINED REPOSITIONING AT THIS TIME. ACTIVE BOWEL TONES, PATIENT REPORTS PASSING FLATUS. NG TUBE FUNCTIONING WNL, LIGHT GREEN DRAINAGE NOTED FROM NG, LWIS PER ORDER. RR: 16, CPOX IS WNL, NO SIGNS OF DISTRESS. ALERT AND ORIENTED. CALL LIGHT WITHIN REACH. NO MORE NEEDS AT THIS TIME.
--- NOTE | 2018-07-29 05:13 | NUR ---
ROUNDED ON PATIENT RESTING IN BED WITH EYES CLOSED, RESPIRATORY RATE IS EVEN AND UNLABORED. PATIENT AWOKE WHEN SPOKEN TO. NEW BAG OF IV FLUIDS INFUSING PER JUN ORDER. CALL LIGHT WITHIN REACH. NO MORE NEEDS AT THIS TIME.
--- NOTE | 2018-07-29 05:40 | NUR ---
ROUNDED ON PATIENT RESTING IN BED WITH EYES CLOSED, RESPIRATORY RATE IS EVEN AND UNLABORED. IV ABX ADMINISTERED PER MAR ORDER. CPOX, WNL. CALL LIGHT WITHIN REACH.
--- NOTE | 2018-07-29 06:30 | NUR ---
ROUNDED ON PATIENT RESTING AWAKE IN BED. NEW CONTINUITY READER SYRINGE PLACED PER JUN ORDER, DOUBLE VERIFIED WITH TIEN DOLAN, PUMP CLEARED. PATIENT REPORTS PAIN A "4/10", CONTINUITY READER BUTTON WITHIN REACH OF PATIENT. SCHEDULED MEDICATION ADMINISTERED PER JUN ORDER. CALL LIGHT WITHIN REACH. NO MORE NEEDS AT THIS.
--- NOTE | 2018-07-29 10:41 | NUR ---
PATIENT SALINE LOCKED FOR A SHOWER AT THIS TIME
--- NOTE | 2018-07-29 14:24 | NUR ---
PATIENT STATES PAIN IS TOLERABLE, MOSTLY AT A 3/10 BUT SPIKES UP TO A 5/10. HE HAS BEEN USING THE ROLL OVER LOADER PUMP APPROPRIATLY. HE HAS BEEN PASSING GAS BUT BOWEL TONES ARE HYPOACTIVE. FAMILY IS HERE TO VISIT.
--- NOTE | 2018-07-29 14:33 | NUR ---
PT IN BED, MOTHER IN RM VISITING. HE SHOOK MY HAND AND THANKED ME FOR COMING IN. HE FELT HE WAS HAVING A BETTER DAY AND NG BOWL WAS FULL. INFORMED KELSI KLINE OF [facility] STATUS. EXTENDED A BLESSING, WILL CONTINUE TO FOLLOW
--- NOTE | 2018-07-29 17:04 | NUR ---
PATIENT GIVEN SCHEDULED PAIN MEDICATION AT THIS TIME, PATIENT STATES THAT PAIN IS CURRENTLY AT A 2/10 BUT SHOOTS UP TO A 6/10.
--- NOTE | 2018-07-29 18:45 | NUR ---
PATIENT HAS BEEN PASSING GAS TODAY BUT BOWEL TONES REMAIN HYPOACTIVE. NG TUBE DRAINAGE BILE IS STILL A DARK BROWN AND ABDOMEN IS SOFT NON DESTENDED. INSICION MIDLINE ABDOMEN IS INTACT WITH CHELITA NO DRAINAGE NOTED. HE HAS AMBULATED IN THE HALLWAY TWICE AND TOOK A SHOWER.
--- NOTE | 2018-07-29 19:10 | NUR ---
SHIFT REPORT RECEIVED FROM ISRAELMNTANI SURESH AT BEDSIDE. PT AWAKE AND RESTING IN BED, RR WNL, CPOX IN PLACE. PT ON RA, O2 SAT AND HR WNL. NG TUBE FUNCTIONING WNL, SET TO LWIS. DIRECTOR OF DIGITAL PLATFORMS BUTTON WITHIN REACH. IV FLUIDS INFUSING PER MD ORDERS, SITE WNL. INCISION SITE OPEN TO AIR, CHELITA NOTED, WELL APPROXIMATED. PT DENIES NEEDS AT THIS TIME. CALL LIGHT IN REACH.
--- NOTE | 2018-07-29 20:30 | NUR ---
ASSESSMENT COMPLETE, SCHEDULED MEDICATIONS GIVEN (SEE EMAR). PT REPORTS / "TOLERABLE PAIN". PT STATES, "I'M FINE. I DON'T NEED ANYTHING ELSE". PT A/OX4. VSS. IV FLUIDS AND SCHEDULED IV ABX INFUSING, SITE WNL. BLOOD RETURN NOTED. INCISION SITE WELL APPROXIMATED, CHELITA NOTED. SITE OPEN TO AIR. NG TUBE TO LIWS, OUTPUT RECORDED. BOWEL TONES ACTIVE, PT DENIES NAUSEA. SHELL PLATER PUMP BUTTON IN REACH, PUMP SET PER MD ORDERS (SEE EMAR). NO FURTHER NEEDS, CALL LIGHT IN REACH.
--- NOTE | 2018-07-29 23:30 | NUR ---
NEW PASSENGER BOOKING CLERK CARTRIDGE REPLACED. DOSE VERIFIED WITH SECOND RN JUAN. PT REPORTS 2/10 PAIN, FLUCUATES TO 4-6/10 WITH MOVEMENT. PT DENIES ADDITIONAL INTERVENTION FOR PAIN. CALL LIGHT IN REACH.
--- NOTE | 2018-07-30 00:30 | NUR ---
SCHEDULED IV FLAGYL INFUSING, IV SITE WNL. NG NOSE TAPE REPLACED BY THIS RN. PT DENIES FURTHER NEEDS, CALL LIGHT IN REACH.
--- NOTE | 2018-07-30 01:15 | NUR ---
PER REQUEST FROM THIS RN, DRUM STENCILER NURY IN ROOM TO ADMINSITER SCHEDULED IV TORADOL.
--- NOTE | 2018-07-30 05:24 | NUR ---
PT HAD UNEVENTFUL NIGHT, SLEPT ON AND OFF THIS SHIFT. A/OX4, PAIN CONTROLLED WITH MARKETING AMBASSADOR PUMP AND SCHEDULED IV TORADOL. PT SBA WITH AMBULATION. NPO, BOWEL TONES ACTIVE, PT REPORTS PASSING GAS. MILD NAUSEA/BLOATEDNESS, NO NEED FOR ZOFRAN. D5LR AT 125MLS/HR. SCHEDULED IV ABX. INCISION OPEN TO AIR WITH CHELITA. NO DRAINAGE NOTED.
--- NOTE | 2018-07-30 05:36 | NUR ---
VS AND I&O'S RECORDED AND STABLE. SCHEDULED IV ABX (SEE EMAR) INFUSING PER MD ORDERS. IV SITE WNL. PT DENIES FURTHER NEEDS. ASSESSMENT COMPLETE. PT DROWSY, EASY TO AWAKEN. NO NEW CONCERNS. PROGRAM CONTROL ANALYST PUMP IN REACH. CALL LIGHT ALSO IN REACH. NO NEW CONCERNS REGARDING INCISION SITE, WELL APPROXIMATED. CHELITA NOTED. NG TUBE TO LIWS, OUTPUT RECORDED.
--- NOTE | 2018-07-30 07:30 | NUR ---
PATIENT'S REPORT RECEIVED FROM SHARMILA DOLAN AT THIS TIME. THIS PATIENT HAS ALREADY THIS AM BEEN SEEN BY DOCTOR KASSANDRA, IV ABX WERE DC'D AND ORDER FOR REMOVAL OF NG TUBE NOTED.
--- NOTE | 2018-07-30 08:02 | NUR ---
PATIENT WAS AWAKE, EMPTY HIS URNIAL. PATIENT IS NPO. PATIENT SAID HE DIDNT NEED ANY ASSISTANCE.
--- NOTE | 2018-07-30 11:10 | NUR ---
PATIENT AMBULATED IN THE HALLWAY WITH HIS STUDENT NURSE, HE HAD NO S/S OF DISTRESS OR PAIN, STUDENT REMINDED OF ORDER TO REMOVE NG TUBE.
--- NOTE | 2018-07-30 12:07 | NUR ---
PT UP WALKING WITH STAFF. HE GREETED ME AND HAD BRIEF VISIT WHILE AMBULATING IN HALLWAY. EXTENDED A BLESSING, WILL FOLLOW NEEDED
--- NOTE | 2018-07-30 14:52 | NUR ---
NG TUBE WAS REMOVED AT 11:15
--- NOTE | 2018-07-30 15:00 | NUR ---
STUDENT NURSE UPDATED ME ABOUT PATIENTS CONDITION AT THIS TIME, PATIENT IS RESTING AND HAS TOLERATED APPLE JUICE, SMALL AMOUNT ONLY AT THIS TIME. PAIN HAS BEEN WELL CONTROLLED TODAY WITH CUT PLUG PACKER PUMP. WE WILL CONTINUE TO MONITOR THIS PATIENT.
--- NOTE | 2018-07-30 19:29 | NUR ---
RECEIVED REPORT FROM KELSI SURESH. pt STATED PAIN "OKAY, JUST STARTING TO CRAMP UP". WHITEBOARD UPDATED. NO REQUESTS AT THIS TIME. CALL LIGHT WITHIN REACH. GIRLFRIEND AT BEDSIDE.
--- NOTE | 2018-07-30 20:11 | NUR ---
ASSESSMENT AND MEDICATIONS DUE. ASSESSMENT DONE. pt STATES PAIN 4/10 WITH SHELLFISH SORTER. ENCOURAGED AMBULATION. pt ALERT AND AWAKE, TALKING TO GIRLFRIEND. NEW SHELLFISH SORTER CARTRIDGE GIVEN (SEE MAR). INCISION DRY EDGES WELL APPROXIMATED, OPEN TO AIR. CALL LIGHT WITHIN REACH. NO REQUESTS AT THIS TIME.
--- NOTE | 2018-07-30 21:45 | NUR ---
VITAL SIGNS AND I&O ENTERED. pt REPORTED 2/10 PAIN. NO REQUESTS AT THIS TIME. CALL LIGHT WITHIN REACH.
--- NOTE | 2018-07-31 00:09 | NUR ---
ROUNDED ON pt. RESTING WITH EYES CLOSED, RESPIRATIONS REGULAR, O2 SAT 93%. CALL LIGHT WITHIN REACH.
--- NOTE | 2018-07-31 00:32 | NUR ---
CALL LIGHT ON. IV PUMP BEEPING, NEW FLUIDS HUNG. MED GIVEN (SEE MAR). pt REPORTED PAIN 6/10 USING PASSENGER VESSEL CHEF. CALL LIGHT WITHIN REACH. URINAL EMPTIED. NO FURTHER REQUESTS.
--- NOTE | 2018-07-31 03:16 | NUR ---
ROUNDED ON pt. RESTING WITH EYES CLOSED, RESPIRATIONS REGULAR. O2 SAT 96%. CALL LIGHT WITHIN REACH.
--- NOTE | 2018-07-31 04:05 | NUR ---
CALL LIGHT ON. pt REQUESTED URINAL BE EMPTIED. RATED PAIN 3/10. ASSESSMENT DONE. EMBEDDED ENGINEER BUTTON AND CALL LIGHT WITHIN REACH. NO FURTHER REQUESTS AT THIS TIME.
--- NOTE | 2018-07-31 05:00 | NUR ---
pt RESTED ON AND OFF DURING SHIFT. PAIN CONTROLLED WITH SCHEDULED TORADOL AND DILAUDID BUCKLE ATTACHING MACHINE OPERATOR. SBA. REPORTED PASSING "LOTS OF GAS" WHEN URINATING. NO NAUSEA. TOLERATING SIPS OF WATER. VOIDING A LOT. INCISION OPEN TO AIR, EDGES APPROXIMATED, NO DRAINAGE NOTED. USES CALL LIGHT APPROPRIATELY.
--- NOTE | 2018-07-31 05:24 | NUR ---
TIMBER APPRAISER PUMP BEEPING. NEW CARTRIDGE INSTALLED, ROSANNA DOLAN VERIFIED SETTINGS. VITAL SIGNS AND I&O RECORDED. pt RATED PAIN 4/10. STATED "I'M PASSING A LOT OF GAS WHEN I URINATE". NO REQUESTS AT THIS TIME. CALL LIGHT WITHIN REACH.
--- NOTE | 2018-07-31 06:24 | NUR ---
IV RATE DECREASED PER MD ORDER TO 75 MLS/HR. pt ON FULL LIQUID DIET, REFUSED MENU. PAIN 09/28 "WAITING FOR THE PAIN TO SUBSIDE" ASSISTANT HEAD CASHIER IN HAND. CALL LIGHT WITHIN REACH. MD IN ROOM
--- NOTE | 2018-07-31 07:37 | NUR ---
REPORT RECEIVED FROM [facility] SHIFT RN. PT IN BED, AAO. D5LR AT 75. CALL LIGHT IN REACH. DENIES NEEDS AT THIS TIME.
--- NOTE | 2018-07-31 08:04 | NUR ---
ELECTRIC REPAIR SUPERVISOR DISCONTINUED PER ORDER.
--- NOTE | 2018-07-31 09:44 | NUR ---
PT OOB AMBULATING IN HALLS. PAIN 07/29. PO NORCO ADMINISTERED WITH STUDENT NURSE.
--- NOTE | 2018-07-31 09:57 | NUR ---
Patient ambulated in hallway with student nurse as a stand by assist. Patient needed no assistance with ambulating.
--- NOTE | 2018-07-31 10:36 | NUR ---
Patient sat up in chair after ambulating 4 laps in the hallway with student nurse stand by assist. Patients bed linen was just changed and patient asked to return to the bed. Patient is in bed now, bed rails up and call light in reach.
--- NOTE | 2018-07-31 11:44 | NUR ---
PT OOB TO BATHROOM FOR BOWLE MOVEMENT.
--- NOTE | 2018-07-31 12:01 | NUR ---
Patient used call light to ask for assistance to the bathroom. Patient had a large BM. BM was coffee ground color, BM was mostly hard but parts were loose. Before BM pain was at a 1/10. After BM patient was complaining of pain after having BM in his abdomen where his incision site is. Student nurse and nurse suggested a ice pack but patient refused. Patient is now back in bed with call light in reach.
--- NOTE | 2018-07-31 12:30 | NUR ---
PT HAS NG TUBE DC'D AND UP AMBULATING WITH SN. PT VERY THANKFUL FOR NO NG TUBE, APPEARS PALE BUT ALERT AND ORIENTED. GAVE ENCOURAGEMENT AND EXTENDED A BLESSING. WILL FOLLOW NEEDED
--- NOTE | 2018-07-31 14:59 | NUR ---
Pt states he has some nausea and pain rated at a 6/10. Pt medicated for both pain and nausea and his primary RN was notified of this and is now following up with him.
--- NOTE | 2018-07-31 16:00 | NUR ---
PT OUT AMBULATING HALLS.
--- NOTE | 2018-07-31 18:42 | NUR ---
PT OUT AMBULATING HALLS.
--- NOTE | 2018-07-31 19:06 | NUR ---
PATIENT AND I WALKED THREE DIFFERENT TIMES 2 LAPS EACH. TODAY.
--- NOTE | 2018-07-31 20:40 | NUR ---
CHARGE NURSE ROUNDING NOTE: PT AMBULATED UP AND DOWN HALLWAYS 3X, TOLERATED WELL. BACK TO ROOM. ICE CIPS AND FRESH WATER GIVEN ONREQUEST. CALL LIGHT AT BEDSIDE
--- NOTE | 2018-07-31 21:20 | NUR ---
CALL LIGHT ON. pt REPORTED VOMITTING. 850 ML OF BROWN MUCUSY EMESIS. pt REPORTED "I DON'T FEEL NAUSEOUS". PRN NAUSEA MED RECENTLY GIVEN (SEE MAR). CALL LIGHT WITHIN REACH.
--- NOTE | 2018-07-31 23:16 | NUR ---
ROUNDED ON pt. REPORTED PAIN 2/10. PRN PAIN MED GIVEN WITH MELATONIN (SEE MAR). pt REPORTED NAUSEA IS IMPROVED. CALL LIGHT WITHIN REACH. NO FURTHER REQUESTS AT THIS TIME.
--- NOTE | 2018-08-01 00:30 | NUR ---
Patient requested an ice pack due to him "burning up" and I took his temp orally and read as 99.2. KELSI Alexander was informed.
--- NOTE | 2018-08-01 00:45 | NUR ---
CALL LIGHT pt REPORT EMESIS. 750 MLS OF BROWN EMESIS. pt REPORTED "I SAT UP TO BURP AND THEN I THREW UP". DENIED NAUSEA. CALL LIGHT WITHIN REACH. NO FURTHER REQUESTS AT THIS TIME.
--- NOTE | 2018-08-01 02:30 | NUR ---
ROUNDED ON pt. VOMITING, SMALL AMOUNT. pt STATED "I JUST WANT TO SLEEP" WILL CONTINUE TO MONITOR. URINAL EMPTIED. CALL LIGHT WITHIN REACH.
--- NOTE | 2018-08-01 03:11 | NUR ---
PATIENT HAS BEEN SLEEPING.
--- NOTE | 2018-08-01 03:15 | NUR ---
pt READY FOR PRN PAIN MED. SAID HE WAS FEELING A LITTLE NAUSEOUS. PRN PAIN MED AND NAUSEA MED GIVEN (SEE MAR). ASSESSMENT DONE. BOWEL TONES HYPERACTIVE. CALL LIGHT WITHIN REACH.
--- NOTE | 2018-08-01 04:00 | NUR ---
pt VOMITTED 1000 ML. NOTIFIED, NEW ORDERS ENTERED BY KELSI MOYA. pt REFUSED NG AT THIS TIME. ASSOCIATED EMESIS WITH PO INTAKE, ENCOURAGED TO TAKE IT SLOW. WILL CONTINUE TO MONITOR. CALL LIGHT WITHIN REACH.
--- NOTE | 2018-08-01 04:01 | NUR ---
PRIMARY RN URBANO NOTIFIED DR CANNON VIA PHONE ABOUT PTS LARGE AMOUNT OF DARK BROWN, THICK COLORED EMESIS TOTAL 2600CC T/O THIS SHIFT. PT ON FULL LIQUIDS, TOLERATING/ TAKING SMALL SIPS. NEW ORDERS TO INCREASE D5LT IVF TO 100ML/HR, CHANGE DIET TO CLEARS AND TO REINSERT NGT IF PT OK WITH IT.
--- NOTE | 2018-08-01 04:56 | NUR ---
pt DID NOT REST DURING SHIFT. SIGNIFICANT EMESIS X3. MD NOTIFIED. IVF RATE INCREASED. CLEAR LIQUID DIET. NOT MUCH PO INTAKE. SBA. VOIDING QS. AMBULATED X1. pt REPORTED NOT PASSING " MUCH GAS". BT HYPOACTIVE AT SECOND ASSESSMENT. PAIN CONTROL NOT EFFECTIVE pt WOULD LIKE. USES CALL LIGHT APPROPRIATELY.
--- NOTE | 2018-08-01 05:21 | NUR ---
ROUNDED ON pt. RESTING WITH EYES CLOSED BUT NOT SLEEPING. RATED PAIN 2/10, "MY STOMACH IS NOT BOTHERING ME RIGHT NOW". VSS. I&O RECORDED. CALL LIGHT WITHIN REACH.
--- NOTE | 2018-08-01 07:14 | NUR ---
RECIEVED BEDSIDE REPORT FROM KELSI CLEMENT. PT AWAKE AND ALERT IN BED, STATED THE NASUEA HAS RESOLVED. HE WILL TRY CLEARS AGAIN. PT STATED HE HAD A BM THIS MORNING.
--- NOTE | 2018-08-01 08:44 | NUR ---
PT IS AWAKE AND ALERT IN BED. HE STATES THAT "WE WILL KNOW IN 30 MINUTES IF I'LL KEEP IT DOWN." HE HAS HAD SOME JUICE THIS AM. HE APPEARS PALE. PT STATES HE HAS HAD A BM THIS SHIFT.
--- NOTE | 2018-08-01 09:46 | NUR ---
PT REPORTED EMISIS. 900ML OF BROWN, THICK EMISIS EMPITIED.
--- NOTE | 2018-08-01 15:47 | NUR ---
PT CONTINUES TO VOMIT. 2500ML OF BROWN TO GREEN BILE LOOKING EMESIS. PT C/O PAIN AND NAUSEA, ONLY PAIN MEDS ARE PO. CALLED DR CANNON TO UPDATE. TELEPHONE ORDER OF 1) DILAUDID 0.3-1.5MG IV Q2H PRN PAIN 2) FLAT AND UPRIGHT XRAY FOR 08/02/18 AM POST UP FOLLOW UP. ORDERS ENTERED.
--- NOTE | 2018-08-01 16:39 | NUR ---
PT CONTINUES TO HAVE LARGE AMOUNTS OF EMESIS, GOING FROM THICK BROWN TO LIQUID GREEN. PT CONTINUES TO C/O PAIN, GOT A TELEPHONE ORDER FROM DR CANNON FOR IV DIALUDID. PT STATED THAT IT WAS VERY EFFECTIVE. ENCOURAGE PT NOT TO EAT OR DRINK TO ALLOW REST. NO BM THIS SHIFT. SHCHEDULED XRAY FOR THE MORNING.
--- NOTE | 2018-08-01 19:20 | NUR ---
ROUNDED CHARGE. PATIENT IS RESTING IN CHAIR. PATIENT DENIES ANY COMMENTS, QUESTIONS AND CONCERNS. NO NEEDS NOTED. CALL LIGHT IN REACH.
--- NOTE | 2018-08-01 19:49 | NUR ---
resting, eyes closed, call light at bedside
--- NOTE | 2018-08-01 21:18 | NUR ---
AWAKENS EASILY, ON ROOM AIR, NO C/O RESP DISTRESS, COOP WITH ASSESSMENT, ABD MIDLINE INCISION CDI, WSTAPLES, EDGES WELL APPROX. PINK DRY. PINO UPPER BOWEL TONES, TIMPANIC/FAINT LOW QUAD BOWEL TONES. ABD TENDER. DECLINES SCDS AT THIS TIME. NO C/O N/V FRESH WATER AT BEDSIDE. USING URINAL,VOIDING DARK YELLOW URINE
--- NOTE | 2018-08-01 22:09 | NUR ---
PATIENT ADMISSION COMPLETED. PATIENT HAS CHEST TUBE IN PLACE. PATIENT IS SITTING UP AT THE EDGE OF THE BED. ROSANNA DOLAN IN ROOM TO ASSES PATIENT. PATIENT ORIENTED TO UNIT, ROOM AND FLOOR. PATIENT DENIES ANY SOB. PATIENT OREINTED TO CALL LIGHT. ALL QUESITONS ANSWERED. CALL LIGHT IN REACH.
--- NOTE | 2018-08-01 22:40 | NUR ---
ROUNDED ON PATIENT RESTING AWAKE IN BED WATCHING TV. PATIENT REPORTS "6/10" IN "INTESTINES" AND "BACK", PRN PAIN MEDICATION ADMINISTERED PER JUN ORDER. COOL CLOTH PROVIDED TO PATIENT HEAD. CALL LIGHT WITHIN REACH. NO MORE NEEDS AT THIS TIME.
--- NOTE | 2018-08-01 23:59 | NUR ---
RESTING, NO DISTRESS, ROOM AIR, IVF INFUSING, CALL LIGHT AND FLUIDS AT BEDSIDE. NO EMESIS AT THIS TIME
--- NOTE | 2018-08-02 02:10 | NUR ---
up to br with 1pa. voided qs cloudy urine. pt instgructed on need to get a sample next time he gets up to br, stated understanding, denies pain or burning with urination. Back to bed, medicated with Dilaudid 0.5mg IV
--- NOTE | 2018-08-02 04:51 | NUR ---
medicated with Dilaudid 0.5mg iv c/o 08/28 abd pain. no m/v at this time. tolerating sips of clear well
--- NOTE | 2018-08-02 05:34 | NUR ---
PT CURRENTLY RESTING. WALKED EARLIER THIS SHIFT, TOLERATD WELL. NO EMESIS. CONTINUES ON CLEAR LIQUIDS, TOLERATING SIPS WELL. PINO BOTWEL TONES. MIDLINE INCISION W CHELITA CDI. PINK AND WELL APPROXIMATED EDGES. MEDICATED 3X WITH DIALUDID 0.5MG IV PER ABD PAIN. WITH FAIR TO GOOD PAIN RELIEF. HAD 2 BM'S VOIDING QS CDARK YELLOW WITH INCREASED SEDIMENTS LIKE URINE. DENIES URINARY DISCOMOFRT. PT AWARE OF KUB ORDERED FOR THIS AM. NO REQUETS, CALL LIGHT AT BEDSIDE
--- NOTE | 2018-08-02 08:55 | NUR ---
PT RESTING IN BED REPORTS PAIN 8/10 1MG IV DILAUDID ADMINISTERED. PT ALERT AND ORIENTED, COOPERATIVE WITH CARE. NO NAUSEA AT THIS TIME, NO APPETITE AT THIS TIME
--- NOTE | 2018-08-02 11:06 | NUR ---
pt reports pain 7/10 1mg iv dilaudid at this time.
--- NOTE | 2018-08-02 14:55 | NUR ---
PT UP AMBULATING IN HALLS AT THIS TIME, INDEPENDENTLY WITH SIGNIFICANT OTHER.
--- NOTE | 2018-08-02 16:14 | NUR ---
PATIENT WALKED THREE LAPS WITH HIS SIGNIFICANT OTHER TOLERATED IT WELL
--- NOTE | 2018-08-02 16:29 | NUR ---
PT RESTING IN BED , DISCUSSED PLAN TO WALK AGAIN IN HALLS, PT AGREED AND SAT UP TO SIDE OF BED. HE REPORTS HE IS FEELING BETTER THIS AFTERNOON.
--- NOTE | 2018-08-02 16:46 | NUR ---
PT HAD SMALL BOWEL FOLLOW THROUGH TODAY SHOWS NO OBSTRUCTIONS. PT HAS BEEN UP AMBULATING HALLS, HE HAS BEEN TOLERATING CLEAR LIQUIDS SMALL AMOUNTS, NO N/V TODAY. REPORTS PAIN HIGH THROUGHOUT THE SHIFT. HAS BT X4 QUADRANTS HYPOACTIVE. ENCOURAGE TO DEEP BREATH AND COUGH WELL.
--- NOTE | 2018-08-02 17:35 | NUR ---
PT RESTING IN BED REPORTS DOING OK. GOING SLOW WITH LIQUIDS. WAS GIVEN CLEAR LIQUID APPLE ENSURE. TOLERATING OK AT THIS TIME.
--- NOTE | 2018-08-02 17:45 | NUR ---
PT AMBULATING IN HALLS AT THIS TIME. TOLERATING ACTIVITY WELL. AMBULATING STEADY GAIT.
--- NOTE | 2018-08-02 19:15 | NUR ---
RECIEVED BEDSIDE REPORT FROM ELIUD DOLAN. PATIENT RESTING AWAKE IN BED WATCHING TV. IV FLUIDS INFUSING PER MAR ORDER. WHITE BOARD UPDATED. PATIENT DENIES ANY NEEDS AT THIS TIME. CALL LIGHT WITHIN REACH.
--- NOTE | 2018-08-02 19:52 | NUR ---
PT UTILIZES CALL LIGHT, REPORTS NAUSEA. PRN ZOFRAN ADMINISTERED. PT STATES THAT "THE TRAMADOL PILL" UPSET HIS STOMACH. REPORTS THE IV MEDICATION WAS MUCH BETTER. MEDICATION EDUCATION PROVDIDED. PT STATES UNDERSTANDING. PT STATES THAT HE HOPES THE ANTIMETIC WORKS, THAT IT HASN'T IN THE PAST. PT DENIES FURTHER NEEDS AT THIS TIME. ENCOURAGED PT TO USE CALL LIGHT FOR UNRELIEVED NAUSEA. CALL LIGHT IN REACH.
--- NOTE | 2018-08-02 21:45 | NUR ---
PT UTILIZES CALL LIGHT, REPORTS THAT HE HAD AN EPISODE OF EMESIS. 1000 ML OF GREEN COLORED EMESIS PRESENT. PT ALSO REPORTS HAVING 6/10 ABDOMINAL PAIN. PT STATES HE WOULD LIKE TO HAVE IV PAIN MEDICATION, HE BELIEVES THIS WILL ALLEVIATE PAIN AND NAUSEA. DISCUSSED WITH PRIMARY RN, JENNY. IV DILAUDID ADMINISTERED. PT DENIES FURTHER NEEDS AT THIS TIME. CALL LIGHT WITHIN REACH.
--- NOTE | 2018-08-02 22:20 | NUR ---
PATIENT CALLED TO USE THE BATHROOM. SBA. PATIENT STATED HE IS OKAY TO BE BY HIMSELF IN THE BATHROOM AND BACK TO BED. DIRECTOR OF STRATEGIC ALLIANCES NOTIFIED.
--- NOTE | 2018-08-02 22:25 | NUR ---
PATIENT CALLED THAT HE IS BACK IN BED. WENT IN TO THE ROOM AND PLUG IN THE IV. PRIMARY RN IS IN THE ROOM.
--- NOTE | 2018-08-02 22:27 | NUR ---
V/S AND I&O DONE AND CHARTED.
--- NOTE | 2018-08-02 22:30 | NUR ---
ASSESSMENT COMPLETE, REFER TO ASSESSMENT. PATIENT REPORTS "1/10" PAIN IN ABD, AND STATES "I'M FEELING PRETTY GOOD NOW", INCISION ON ABD IS CDI. PATIENT DENIES NAUSEA. PATIENT DENIES HAVING CHEST PAIN, SHORTNESS OF BREATH OR DIFFICULTY BREATHING. IV FLUIDS INFUSING PER MAR ORDER. SCDs IN PLACE. THIS RN ENCOURAGED USE OF INCENTIVE SPIROMETER. CALL LIGHT WITHIN REACH. NO MORE NEEDS AT THIS TIME.
--- NOTE | 2018-08-03 00:16 | NUR ---
PROVIDED REPORT TO ARMANI DOLAN. ALL QUESTIONS ANSWERED.
--- NOTE | 2018-08-03 00:37 | NUR ---
PT UTILIZES CALL LIGHT, REQUESTS PAIN MEDICATION. PT STAETS THAT HE CAN "FEEL HIS BOWELS BACKING UP" WHICH IS A "PRECURSOR TO NAUSEA". HE STATES THAT PAIN MEDICATION ALLEVIATES THESE SYMPTOMS. PT DENIES FURTHER NEEDS AT THIS TIME. CALL LIGHT WITHIN REACH.
--- NOTE | 2018-08-03 02:15 | NUR ---
PT RESTING IN BED WITH EYES CLOSED. RESPIRATIONS EVEN AND UNLABORED. PT APPEARS TO BE SLEEPING. CALL LIGHT WITHIN REACH.
--- NOTE | 2018-08-03 02:41 | NUR ---
PATIENT CALLED TO USE THE BATHROOM AND BACK TO BED. PATIENT VOIDED AND HAD LOOSE BOWEL MOVEMENT.
--- NOTE | 2018-08-03 05:00 | NUR ---
PT ASSESSMENT COMPLETE. PT REPORTS THAT PAIN IS INCREASING AGAIN, RATES 07/29. PT REQUESTS PRN PAIN MEDICATION. MIDLINE INCISION PURCHASING ANALYST, C/D/I. PT DENIES ABD TENDERNESS. BT'S HYPOACTIVE TO ACTIVE. PT REPORTS HAVING BM LAST TRIP TO THE BATHROOM. PT STATES "I JUST THINK I WAS RUSHED TO PAIN PILLS TOO SOON." MEDICATION TIMELINE REVIEWED WITH PT, EDCUATION PROVIDED. PT STATES UNDERSTANDING. PT REQUESTS WATER REFILLED, PROVIDED. PT DENIES FURTHER NEEDS AT THIS TIME. CALL LIGHT IN REACH.
--- NOTE | 2018-08-03 05:03 | NUR ---
PT SLEPT OFF AND ON THIS SHIFT. PT REQUESTING IV PAIN MEDICATION, STATES THAT ORAL IS CAUSING NAUSEA AND INCREASED PAIN. IV DILAUDID ADMINISTERED X 3, ZOFRAN X 1. GREEN EMESIS X 1 THIS SHIFT, 1000 ML. MIDLINE INCISION REPAIRER VENEER SHEET WITH CHELITA. PT DENIES ABD TENDERNESS. PT HAD BM X 2 THIS SHIFT, LOOSE/LIQUID BM'S. UO QS. PT TOLERATING SIPS OF WATER. SBA. D5LR @ 100.
--- NOTE | 2018-08-03 06:45 | NUR ---
Patient called and requested to use the restroom. I assisted him and made his bed. He suggested that he would like to talk a walk and did so.
--- NOTE | 2018-08-03 07:48 | NUR ---
REPORT RECEIVED FROM KELSI HACKETT. PT JUST FINISHED WALKING IN JOVEL. STATES THE PO PAIN MEDS MAKE HIM PUKE.
--- NOTE | 2018-08-03 07:52 | NUR ---
PATIENT UP AMBULATING IN HALLWAY AND NOW BACK TO BED. PATIENT COMPLAINED OF PAIN STARTING, RN NOTIFIED. CALL LIGHT IN REACH. NO FURTHER NEEDS AT THIS TIME.
--- NOTE | 2018-08-03 09:34 | NUR ---
PATIENT UP TO BATHROOM AND BACK TO BED, SBA. CALL LIGHT IN REACH. NO FURTHER NEEDS AT THIS TIME.
--- NOTE | 2018-08-03 09:39 | NUR ---
PT UP WALKING IN JOVEL. TOLERATING WELL.
--- NOTE | 2018-08-03 12:01 | NUR ---
PT WALKED IN JOVEL. STATES PAIN IS UP TO 4/10 AND DOES NOT WANT TO TRY PO MED YET. GOING TO TRY TO EAT FULL LIQ TRAY FIRST.
--- NOTE | 2018-08-03 13:25 | NUR ---
PT AMBULATING IN JOVEL. HE IS MORE CHEERFUL TODAY, COLOR BETTER. HE MENTIONED THAT HE IS REALLY READY TO GET BACK TO A NORMAL LIFE. GOOD VISIT, EXTENDED A BLESSING, WILL FOLLOW NEEDED
--- NOTE | 2018-08-03 14:06 | NUR ---
CHECKED IN ON PT. HE WAS ABLE TO EAT THE CREAM OF CHICK. SOUP ALTHOUGH HE STATES HE FEELS A LITTLE ROUGH.
--- NOTE | 2018-08-03 17:00 | NUR ---
PT REPORTS STILL FEELING QUIT NAUSEOUS EVEN AFTER ZOFRAN. ADMINISTERED ZOFRAN.
--- NOTE | 2018-08-03 19:20 | NUR ---
BEDSIDE REPORT RECEIVED FROM OFFGOING. PT UP TO BATHROOM WITH HOSPITAL CODER IN ROOM. NEEDS DENIED AT THIS TIME.
--- NOTE | 2018-08-03 20:56 | NUR ---
PT ASSESSMENT COMPLETE. PT RATES PAIN 5/10 TO ABD. PRN DILAUDID ADMINISTERED. PT CONTINUES TO REPORT SLIGHT NAUSEA. PT DROWSY DURING ASSESSMENT. BT'S ACTIVE. PT DENIES ABD TENDERNESS. MIRALAX HELD PER PT REQUEST, PT HAVING SEVERAL LOOSE BM'S TODAY. MIDLINE INCISION SIMON, WELL APPROXIMATED, CHELITA PRESENT. PT DENIES FURTHER NEEDS AT THIS TIME. CALL LIGHT IN REACH.
--- NOTE | 2018-08-04 00:06 | NUR ---
PT CALLED, NEEDED SOMETHING FOR VOMITING. MED WITH 8 MG ZOFRAN. 300 ML BROWN EMESIS. STATES IT WAS "BUILDING UP" FOR WHILE THEN HE VOMITED. NO OTHER NEEDS AT THIS TIME.
--- NOTE | 2018-08-04 01:38 | NUR ---
PT UTILIZES CALL LIGHT, STATES THAT PAIN IS "WELL OVER A 5". RATES AT 5.5/6. PRN DILAUDID ADMINISTERED. PT DENIES FURTHER NEEDS AT THIS TIEM. CALL LIGHT WITHIN REACH.
--- NOTE | 2018-08-04 03:41 | NUR ---
PT UTILIZES CALL LIGHT. REQUESTS TO USE THE BATHROOM. PT ASSESSMENT COMPLETE. STATES THAT PAIN IS WELL CONTROLLED AT THIS TIME. RATES 3/10. PT REPORTS NAUSEA IS WELL CONTROLLED. MIDLINE INCISION WELL APPROXIMATED, STRIKE PLANNING APPLICATIONS. CHELITA IN PLACE. BT'S ACTIVE. PT DENIES ABD TENDERNESS. PT DENIES FURTHER NEEDS AT THIS TIME. CALL LIGHT IN REACH.
--- NOTE | 2018-08-04 04:20 | NUR ---
STARTED NEW IV. PATIENT TOLERATED WELL. IV INFUSING PER ORDER.
--- NOTE | 2018-08-04 05:20 | NUR ---
PT UTILIZES CALL LIGHT, REPORTS INCREASED PAIN, REQUESTS PRN PAIN MEDICATION. PRN IV DILAUDID ADMINSITERED FOR 5/10 ABD PAIN. PT REPORTS PAIN "TWISTING IN THE GUTS". PT DENIES FURTHER NEEDS AT THIS TIME. CALL LIGHT IN REACH.
--- NOTE | 2018-08-04 05:27 | NUR ---
PT AWAKE OFF AND ON THIS SHIFT. PT REQUESTING IV DILAUDID THROUGHOUT THE NIGHT FOR ABD PAIN, ADMIN X 3. ZOFRAN X 1. PT HAD EMESIS X 2 THIS SHIFT. MIDLINE INCISION KEEPER HEAD WITH CHELITA PRESENT, WELL APPROXIMATED. BT'S ACTIVE. ABD NONTENDER. PT CONTINUES TO HAVE EPISODES OF LOOSE STOOL, REPORTS PASSING FLATUS. SBA. D5LR @ 75. FULL LIQ DIET, PT TOLERATED ONLY SIPS OF WATER THIS SHIFT.
--- NOTE | 2018-08-04 08:29 | NUR ---
ADMIN DILAUDID 1MG IVP FOR REPORTS OF 5/10 ABD PAIN.
--- NOTE | 2018-08-04 09:04 | NUR ---
patient was awake, patient walked to the rest room, also patient walke in the gallo was said he did two loops. patient is trying to eat some food,
--- NOTE | 2018-08-04 15:45 | NUR ---
ADMIN ZOFRAN 8MG IVP FOR REPORTS OF NAUSEA.
--- NOTE | 2018-08-04 17:22 | NUR ---
ADMIN DILAUDID 1MG IVP FOR REPORTS OF 7/10 ABD PAIN.
--- NOTE | 2018-08-04 18:27 | NUR ---
PT REQUESTING DILAUID IV THROUGHOUT THIS SHIFT. NORCO PO TRIED ONCE, PT REPORTED DOES NOT WORK ON "STOMACH PAIN". PT TOLERATED SMALL AMOUNTS OF FOOD TODAY. BOWEL TONES HYPOACTIVE. INCISION TO RA, CHELITA INTACT. PASSED LOOSE STOOL TODAY. PASSING FLATUS. D5LR@55ML/HR. PT STATES HE WOULD LIKE TO STAY ON DILAUDID FOR "NEXT COUPLE OF DAYS". EDUCATION ONGOING THIS SHIFT REGARDING NARCOTIC USE.
--- NOTE | 2018-08-04 19:51 | NUR ---
RECEIVED REPORT FROM DAY SHIFT RN. PATIENT IS RESTING IN BED VISITING WITH FAMILY. NO NEEDS NOTED. CALL LIGHT IN REACH.
--- NOTE | 2018-08-04 21:10 | NUR ---
PATIENT ASSESMENT COMPLETED. PATIENT RATES PAIN AT A 8/10. PATIENT GIVEN PRN PAIN MEDICATION PER ORDER. PATIENTS EVENING MEDICATION GIVEN PER ORDER. PATIENTS IV IS INFUSING PER ORDER. PATIENT DENIES ANY NAUSEA. PATIENT DENIES ANY FURHTER NEEDS. CALL LIGHT IN REACH.
--- NOTE | 2018-08-04 22:02 | NUR ---
PATIENT RATES PAIN AT A 3.5/10. PATIENT COMPLAINS OF NAUSEA. PATIENT DENIES THE NEED FOR NAUSEA MEDICATIONS AT THIS TIME. PATIENT DENIES THE NEED FOR ADDITIONAL PAIN MEDICAITON AT THIS TIME. PATIENT STATED "I AM TRYIN TO RELAX AND LET THE MEDICATION WORK". NO FURTHER NEEDS NOTED. CALL LIGHT IN REACH.
--- NOTE | 2018-08-04 23:58 | NUR ---
PATIENT ALERTED STAFF THAT HE HAD 1500ML OF EMESIS. PATIENT OFFERED NAUSEA MEDICATION. PATIENT REFUSED. PATIENT STATED "MY BOWELS JUST DONT WORK AND THE NAUSEA MEDICATION DOESN'T WORK". PATIENT STATED "THE ONLY THING THAT MAKES MY BOWELS WORK IS THE IV PAIN MEDICATION". PATIENT ASKED ABOUT TRYING PO PAIN MEDICATION. PATIENT STATED "IT JUST DOESNT WORK". EDUCATED PATIENT ON PAIN MANAGMENT AND PO VS IV. EDUCATED PATIENT ON CHRONIC PAIN AND HIS TOLERANCE LEVEL FOR OPIODS. DISCUSSED A PLAN FOR PAIN MANAGEMENT. PATIENT VERBALIZED UNDERSTANDING AND AGREED TO NEW PAIN MANAGEMENT PLAN. PATIENT GIVEN BROTH AND CRACKERS WITH PAIN MEDICATION. PATIENT DENIES ANY FURTHER NEEDS. CALL LIGHT IN REACH.
--- NOTE | 2018-08-05 01:48 | NUR ---
PATIENT IS RESTING IN BED. PATIENT RATES PAIN AT A 1/10. PATIENT WAS ABLE TO EAT CRACKERS AND CONSUME BROTH. PATIENT DENIES ANY NAUSEA. PATIENT DENIES ANY NEEDS. CALL LIGHT IN REACH.
--- NOTE | 2018-08-05 03:05 | NUR ---
PATIENT RATES PAIN AT A 3/10. PATIENT GIVEN PRN PAIN MEDICATION PER REQUEST. PATIENT DENIES ANY NAUSEA. PATIENT DENIES ANY FURTHER NEEDS AT THIS TIME. CALL LIGHT IN REACH.
--- NOTE | 2018-08-05 04:29 | NUR ---
PATIENT GIVEN PRN PO PAIN MEDICATION FOR 2/10 PAIN IN HIS ABD. PATIENT DENIES ANY FURTHER NEEDS. NO NAUSEA NOTED. CALL LIGHT IN [facility].
--- NOTE | 2018-08-05 04:58 | NUR ---
PATIENT RESTED ON AND OFF THROUGHOUT THE SHIFT. PATIENT IS ON A LOW FIBER DIET. PATIENT IS NOT TOLERATING DIET WELL. PATIENT HAD AN ELISODE OF EMESIS. PATIENT REFUSED NAUSEA MEDICATION. PATIENT RECEIVED MULTIPLE PRN PAIN MEDICATION DOSES. PATIENT IS ON RA. PATIENT IS A SBA. PATIETNS INCISION IS OPEN TO AIR, WELL APPROXIMATED, AND NO DRAINAGE NOTED, STAOPLE PRESENT. PATIENT HAS NOT BEEN OUT OF BED DURING THIS SHIFT. PATIENT IS [id number]
--- NOTE | 2018-08-05 06:15 | NUR ---
PT MEDICATED WITH IV PRN PAIN MEDICATION FOR C/O 06/28 ABDOMINAL PAIN. PT SITTING UP IN BED WATCHING TV, DENIES OTHER NEEDS AT THIS TIME. CALL LIGHT IN REACH.
--- NOTE | 2018-08-05 07:42 | NUR ---
Pt sleeping at this time, resp even and non labored. Personal supplies and call light within reach. Pt appears comfortable at this time.
--- NOTE | 2018-08-05 08:09 | NUR ---
ADMIN ONE TAB NORCO 10/325MG PO FOR REPORTS OF 3/10 ABD PAIN.
--- NOTE | 2018-08-05 10:47 | NUR ---
PATIENT IN BED RESTING. WARM WASHCLOTH OFFERED. PATIENT DID 2 LAPS AROUND MED/SURG THIS MORNING. BREAKFAST IN ROOM. CALL LIGHT IN REACH. NO FUTHER NEEDS AT THIS TIME.
--- NOTE | 2018-08-05 12:55 | NUR ---
ADMIN DILAUDID 0.3MG IVP AND ONE TAB NORCO 10/325MG PO FOR REPORTS OF 50/10 ABD PAIN. PERSONAL SUPPLIES AND CALL LIGHT WITHIN REACH.
--- NOTE | 2018-08-05 14:10 | NUR ---
Pt vomited 700ml of light brown emesis. Pt states he feels better post emesis. Will admin antiemetic.
--- NOTE | 2018-08-05 15:45 | NUR ---
PATIENT IN BED RESTING. HE FELT NAUSIOUS. WATER REFRESHED. CALL LIGHT IN REACH. NO FURTHER NEEDS AT THIS TIME.
--- NOTE | 2018-08-05 16:31 | NUR ---
ADMIN 0.5 IVP FOR REPORTS OF 5/10 ABD PAIN.
--- NOTE | 2018-08-05 17:40 | NUR ---
ADMIN ONE TAB OF NORCO 10/325MG PO FOR REPORTS OF 5/10 ABD PAIN.
--- NOTE | 2018-08-05 18:30 | NUR ---
A&OX3. RA. [id number]/HR. TOLERATING SNACKING WELL, ON LOW FIBER DIET. X1 EMESIS. NORCO AND DILAUDID FOR ABD PAIN. ABD INCISON TO RA, CHELITA INTACT. HYPO BT. AMBULATED IN HW INDEPENDENT WELL.
--- NOTE | 2018-08-05 20:07 | NUR ---
medicated wtih Dilaudid 0.3mg IV per abd pain 5/10 pain. Watching tv
--- NOTE | 2018-08-05 21:20 | NUR ---
WATCHNG TV, NO FURTHER C/O PAIN. TAKING WITH SIGNIFICANT OTHER VIA PHONE NO C/O N/V. ABD INCISION W CHELITA IN PLACE, CDI. IVF INFUSING W/O BENOIT
--- NOTE | 2018-08-05 22:20 | NUR ---
WATCHING TV. C/O UPSET PAINFUL STOMACH. MEDICATED WITH 1 NORCO.
--- NOTE | 2018-08-06 01:50 | NUR ---
c/o abd pain. medicated with Dilaudud 0.5mg IV 07/29 abd pain. In bed, no c/o n/v at this time.
--- NOTE | 2018-08-06 03:30 | NUR ---
RESTING, EYES CLOSED, NOP DISTRESS, NO FURTHER C/O PAIN. NO N/V
--- NOTE | 2018-08-06 05:58 | NUR ---
CURRENTLY RESTING, NO SOB AT THIS TIME. PT HAS BEEN MEDICATD WITH DIALAUDID AND NORCO PER ABD PAIN. PT STATES HE IS NOT PASSING GAS ANYMORE. ABD MIDLINE INCISION WITH CHELITA, CDI. IVF INFUSING W/O PROBLEMS. NO C/O N/V. CONTIUES TO HAVE POOR APPETITE, AND POOR FLUID INTAKE.
--- NOTE | 2018-08-06 06:42 | NUR ---
MEDICATED WITH 1 NORCO 4/10 ABD PAIN. AWAKE WATCHING TV. CALL LIGHT AT TBEDSIDE, COANTINUES TO TAKE VERY SCANT AMOUNT OF SIPS OF WATER
--- NOTE | 2018-08-06 07:15 | NUR ---
REPORT RECEIVED FROM KELSI MOYA. PT RESTING IN BED. PT REPORTS 3/10 PAIN THAT IS TOLERABLE AT THIS TIME. PT REPORTS HE IS "PROUD" OF HIMSELF FOR "MAKING IT SO LONG WITHOUT THE DILAUDID." PT REQUESTS CHERRIOS FOR BREAKFAST. ORDERED REQUESTED. EDGES OF INCISION APROXIMATED. PT DENIES ADDITIONAL REQUESTS OR COMPLAINTS AT THIS TIME. CALL LIGHT WITHIN REACH.
--- NOTE | 2018-08-06 08:00 | NUR ---
PATIENT RESTING IN BED. PATIENT'S HANDS AND FACE CLEANED. PATIENT COMPLAINS ABOUT PAIN. RN NOTIFIED. CALL LIGHT WITHIN REACH. NO OTHER NEEDS AT THIS TIME
--- NOTE | 2018-08-06 08:29 | NUR ---
MORNING ASSESSMENT AND MEDICATIONS DUE. THIS RN TO BEDSIDE. PT RESTING IN BED. PT REPORT 5/10 PAIN AND STATES HE WOULD LIKE DILAUDID. SEE MAR FOR MEDICATION GIVEN. ASSESSMENT DONE. WOUND C/D/I, EDGES APROXIMATED. BOWEL TONES HEARD. PT DENIES PASSING GAS THIS MORNING. PT EATING CHERRIOS FOR BREAKFAST. PT ENCORUAGED TO GET UP TO CHAIR. PT REFUSES AT THIS TIME. EDUCATION DONE REGARDING PAIN MEDICTIONS AND PTS HOME USE OF KRATOM. PT STATES HE DOES NOT PLAN TO DISCONTINUE USE OF KRATOM AT HOME BECAUSE "IT WORKS A LOT BETTER." MEDICATIONS GIVEN. PT DENIES ADDITIONAL REQUESTS OR COMPLAINTS. CALL LIGHT WITHIN REACH.
--- NOTE | 2018-08-06 09:56 | NUR ---
PATIENT SITTING UP IN BED WATCHING TV. VITAL SIGNS AND I&O DONE. CALL LIGHT WITHIN REACH. NO OTHER NEEDS AT THIS TIME
--- NOTE | 2018-08-06 10:03 | NUR ---
THIS RN TO ROOM TO CHECK ON PT. MD TO ROOM FOR ROUNDS. DISCHARGE ORDER PLACED. PT VERBALIZES UNDERSTANDING. PT RATES PAIN AT 2/10 AT THIS TIME AND STATES IT IS TOLERABEL AND HE DOES NOT NEED ADDITIONAL PAIN MEDICAITON AT THIS TIME. NO ADDITIONAL REQUESTS OR COMPALINTS. CALL LIGHT WITHIN REACH.
[2018-08-06] MEDS ORDERED: ADVIL200 MG PO (10:14)
[2018-08-06] MEDS ORDERED: NORCO 5-325 TA1 EACH PO (10:15)
--- NOTE | 2018-08-06 10:49 | NUR ---
PT READY FOR DISCHARGE. CHELITA REMOVED PER MD ORDER, NO BLEEDING NOTED. PT REPORTS 4/10 PAIN, SEE MAR FOR MEDICATION GIVEN. PIV DC'D BY KENDRA WATSON 2, WNL. GAUZE AND COBAN APPLIED. VITALS TAKEN. DISCHRAGE INSTRUCTIONS REVIWED WITH PT AND FAMILY. PT AND FAMILY VERBALIZE UNDERSTANDING OF INSTRUCTIONS AND STATE THEIR QUESTIONS HAVE BEEN ANSWERED. PT DRESSES SELF WITH SBA. PT AWAITING PHARMACIST. NO ADDITIONAL REQUESTS, COMPLAINTS, OR QUESTIONS. CALL LIGHT WITHIN REACH. FAMILY AT BEDSIDE.
[2018-08-06] MEDS ORDERED: KRATOM PO (10:50)
[2018-08-06] MEDS ORDERED: TYLENOL325 MG PO (10:52)
--- NOTE | 2018-08-06 11:05 | NUR ---
PT FINISHED VISITING WITH PHARMACIST. PT TRANSFERS SELF TO WHEEL CHAIR. PT WHEELED FORM CLINIC WITH FAMILY AND ALL PERSONEL BELONGINGS. NO ADDITIONAL REQUESTS, COMPLAINTS, OR QUESTIONS.
--- NOTE | 2018-08-07 08:12 | DS ---
[facility] [address], [place] [address] Signed ADMISSION DATE: 07/25/2018 DISCHARGE DATE: 08/06/2018 FINAL DIAGNOSIS: Small bowel obstruction. PROCEDURE PERFORMED: Laparotomy with lysis of adhesions and repair of serosa x2. HISTORY OF PRESENT ILLNESS: Chris is a 33-year-old gentleman who had an appendectomy at the young age of 5. I met him a number of years ago with a small bowel obstruction. We used a short periumbilical incision to repair that at that time. Chris is very thin and has no body fat whatsoever. He came back with 2 months of crampy abdominal pain with decreased p.o. intake and decrease in his weight. He said he put it off as long as he could recognize it as a small bowel obstruction. They finally got to the point that he had to come to the emergency room. HOSPITAL COURSE: Chris was seen in the emergency room as above. White count was normal. His urine specific gravity was up. His albumin fortunately was still good at 4.1. The CT scan showed the small bowel obstruction somewhere in the mid to distal ileum with fluid and air throughout the entire proximal small bowel and up into the stomach itself. Jamaal had been admitted as above and started on antibiotics. I took him to surgery that same day actually and back through the midline incision. His transverse colon and in the [id number] small bowel was adherent to his previous midline scar. We had to repair the serosa on the transverse colon as well as the small bowel. The small bowel had been kinked enough with some filmy adhesions that caused his bowel obstruction. They were easily taken down sharply with the Metzenbaum scissors. We closed him very carefully with interrupted PDS suture along with the perineum. However, we did have to milk 2/3rd of the small bowel back between our fingers into the stomach and suction all that out through his NG tube in order to return the small bowel back to the abdomen. Having performed that maneuver, we knew he would be in the hospital somewhere between 7 and 10 days. We left him on antibiotics for his 6 days. He slowly but surely recovered his GI function. His pre-albumin was borderline at 21. He started to pass some flatus and bowel movements and his abdomen was becoming more flat everyday. We have started his diet and he was having some trouble with vomiting about once a day. After several days, we noticed that when the Dilaudid wore off, he would vomit. He told me he was using Kratom for his chronic pain. Kratom binds mu receptors similar to narcotics. I explained to Chris that that could very well be the reason for part of his GI upset and vomiting. We went ahead and performed a small bowel follow-through on postop day 8 and Electronically Signed By: ARNOL CASON MD 08/07/1812 PATIENT NAME: CHRIS DE LA VEGA DISCHARGE SUMMARY DATE OF : 87 REPORT #: [id number] PHYSICIAN: ARNOL CASON MD PCP: NO PRIMARY CARE PHYSICIAN REPORT IS CONFIDENTIAL AND NOT TO BE RELEASED WITHOUT AUTHORIZATION [facility] [address], [place] [address] Signed it did go through slowly but it did make it into the colon and there was minimal dilation to small bowel, really no bowel wall thickening. We continued him on a slow course and he slowly but surely recovered. He had multiple bowel movements, but again seemed to vomit once a day usually as the Dilaudid wore off. At this point, he is actually doing quite well. He looks great. He feels great. He said he is eating today and does not seem to be nauseated at all. He continues to pass gas and bowel movements. After a long discussion with Chris, we are going to let him go home with a small prescription for his [place] and he is certainly welcome to take the Kratom he would like, but he could also use Tylenol or ibuprofen. We will also remove all the shen prior to discharge. DISCHARGE PLANS AND MEDICATIONS: Chris is going to be discharged home with a prescription for [place] 5/325 one tablet p.o. q.6 hours p.r.n. pain, we will dispense 20 tablets with no refills. He told me he does not like to take narcotics, but he is a little nervous about not having some available. He told me the last time he had a prescription for narcotics, he never finished and threw them away. He can also resume the Kratom as needed for his chronic pain issues. He can use Tylenol, ibuprofen as well. He can follow a regular diet. We are going to remove all the shen prior to discharge. He should not do any heavy pushing, pulling, or lifting over 20 pounds. He should not return to work currently or drive off or any sporting events. He can shower and bathe as usual. We are going to have him return to the office in about 5 to 7 days. He has expressed understanding and agrees with above plan. Arnol Cason MD ALB/MODL /[id number] cc: Arnol Cason MD Copies: ARNOL CASON MD ~ Electronically Signed By: ARNOL CASON MD 08/07/18 0812 PATIENT NAME: CHRIS DE LA VEGA DISCHARGE SUMMARY DATE OF : 87 REPORT #: [id number] PHYSICIAN: ARNOL CASON MD PCP: NO PRIMARY CARE PHYSICIAN REPORT IS CONFIDENTIAL AND NOT TO BE RELEASED WITHOUT AUTHORIZATION
== END 2018-08-06 11:08 | disposition home or self-care (01) | DRG 337 ==
LOC: ED 01:38 → CCU 01:40 → ED 03:58 → MS 03:58 → CCU 09:53 → MS 09:54 → CCU 17:50 → MS 07-26 10:05
PROVIDERS: ADMIT Colon & Rectal Surgery
PROC: 0DNL0ZZ Release Transverse Colon, Open Approach (ICD-10-PCS; 2018-07-25)
PROC: 3E0T3BZ Introduction of Anesthetic Agent into Peripheral Nerves and Plexi, Percutaneous Approach (ICD-10-PCS; 2018-07-25)
PROC: 3E0T33Z Introduction of Anti-inflammatory into Peripheral Nerves and Plexi, Percutaneous Approach (ICD-10-PCS; 2018-07-25)
PROC: 0DNB0ZZ Release Ileum, Open Approach (ICD-10-PCS; principal; 2018-07-25 14:30)
DX: K56.50 Intestinal adhesions [bands], unspecified as to partial versus complete obstruction (principal); G89.18 Other acute postprocedural pain; K59.09 Other constipation; F17.200 Nicotine dependence, unspecified, uncomplicated; E83.51 Hypocalcemia; E83.42 Hypomagnesemia; M54.9 Dorsalgia, unspecified; G89.29 Other chronic pain; Z90.49 Acquired absence of other specified parts of digestive tract; Z79.899 Other long term (current) drug therapy
CPT/HCPCS: 00840; 36415; 71045; 74177; 74250; 80048; 80053; 81001; 83690; 83735; 84100; 84134; 85025; 94762; 96361; 96376; 99285-25; 99406; C9113; G0378; J0131; J0330; J0610; J0692; J1100; J1170; J1644; J1885; J2250; J2405; J2550; J2704; J2795; J3475; J7030; J7060; J7120; Q9967